=== PATIENT | female | born 1990 | race Caucasian/White ===

== ENCOUNTER 2016-10-01 21:41 | Observation (INO) | payer OTHER ==
[~2016-10-01] VITALS: Ht 180.3 cm; Wt 119.7 kg
[~2016-10-01 21:41] MED LIST: ACET325T9 PO; IBUP-1007 PO
[2016-10-01] MEDS ORDERED: IV NORMAL SALINE 1000ML BAG 1,000 ML IV ONE ×2 (22:30→23:45)
[2016-10-01 22:31] LABS: BASO # 0.1 x10^3/uL (0.0-0.2); BASO % 0 % (0-3); EOS % 1 % (0-3); HEMATOCRIT 48.4 % (36.0-47.0); HEMOGLOBIN 16.2 g/dL (12.0-15.5); LYMPH # 2.1 x10^3/uL (1.0-4.8); LYMPH % 16 % (24-48); MEAN CORPUSCULAR HEMOGLOBIN 31 pg (25-35); MEAN CORPUSCULAR HGB CONC 34 g/dL (31-37); MEAN CORPUSCULAR VOLUME 92 fL (79-100); MONO % 8 % (0-9); NEUT % 75 % (31-73); PLATELET COUNT 242 x10^3/uL (140-400); RED BLOOD COUNT 5.23 x10^6/uL (3.50-5.40); RED CELL DISTRIBUTION WIDTH 13.1 % (11.5-14.5); WHITE BLOOD COUNT 12.9 x10^3/uL (4.0-11.0)
[2016-10-01 22:33] LABS: BILIRUBIN,URINE SMALL (NEG); GLUCOSE,URINE 250 mg/dL (NEG); NITRITE,URINE NEGATIVE (NEG); PH,URINE 5.5; UROBILINOGEN,URINE 0.2 mg/dL (0.2 mg/dL)
[2016-10-01 22:39] LABS: NEG OBC UR NEG; POS OBC UR POS
[2016-10-01 22:41] LABS: CALCIUM 9.2 mg/dL (8.5-10.1); CREATININE 0.8 mg/dL (0.6-1.0); GFR 85.4; POTASSIUM 3.4 mmol/L (3.5-5.1)
[2016-10-01] MEDS: HYDROMORPHONE 2 MG/ML VIAL. IV PRN (22:44)
[2016-10-01 22:45] LABS: ALBUMIN 3.9 g/dL (3.4-5.0); ALBUMIN/GLOBULIN RATIO 0.8 (1.0-1.7); TOTAL BILIRUBIN 0.6 mg/dL (0.2-1.0); TOTAL PROTEIN 8.7 g/dL (6.4-8.2)
[2016-10-01] MEDS ORDERED: ONDANSETRON PF 4 MG/2 ML VIAL. IV ONE (22:45)
[2016-10-01 22:46] LABS: PROTEIN,URINE TRACE mg/dL (NEG-TRACE)
[2016-10-01 22:48] LABS: BACTERIA,URINE FEW /HPF (0-FEW); RBC,URINE OCC /HPF (0-2)
[2016-10-01 22:49] LABS: SQUAMOUS EPITHELIAL CELL,UR MOD /LPF; YEAST,URINE PRESENT /HPF
--- NOTE | 2016-10-01 23:05 | RAD ---
PROCEDURE Abdomen sonogram. HISTORY Right upper quadrant pain. TECHNIQUE Sonographic imaging of the abdomen was performed. COMPARISON None. FINDINGS The exam is limited due to body habitus and bowel gas. There is hepatomegaly and hepatic steatosis. No focal hepatic lesion is seen. There is a suspected gallbladder containing stones, not well seen due to aforementioned study limitations. There is suggestion of gallbladder wall thickening. The common bile duct is normal in caliber. The right kidney is unremarkable. The pancreas, aorta and inferior vena cava are partially obscured. IMPRESSION 1. Significantly limited exam due to body habitus and bowel gas. There is a suspected gallbladder containing stones with associated wall thickening. The possibility of superimposed cholecystitis is not excluded. 2. Hepatomegaly and hepatic steatosis. Electronically signed by: Yudith Connor (Oct 01, 2016 23:04:01)
[2016-10-01] MEDS ORDERED: FLUCONAZOLE 100 MG TABLET. PO ONE (23:15)
[2016-10-01] MEDS ORDERED: MORPHINE SULFATE 2 MG/ML DISP.SYRIN. IV PRN (23:45)
[2016-10-01] MEDS ORDERED: ONDANSETRON PF 4 MG/2 ML VIAL. IV PRN (23:45)
[2016-10-02] MEDS ORDERED: PIPERACILLIN/TAZOBACTAM 3.375 GM in IV NORMAL SALINE 50ML 50 ML IV ONE ×2
[2016-10-02] MEDS: HYDROMORPHONE 2 MG/ML VIAL. IV PRN (00:05)
[2016-10-02 01:20] VITALS: BP 129/83
--- NOTE | 2016-10-02 01:21 | ACF ---
Admission Forms Criteria GALLBLADDER OR BILE DUCT INFLAMMATION OR STONE Clinical Indications for Admission to Inpatient Care ( Place 'X' for any and all applicable criteria): Admission is indicated for patients with ANY ONE of the following(1)(2)(3)(4)(5) : [X]I. Acute cholecystitis as indicated by ALL of the following: [X]a) Right upper quadrant pain, mass, or tenderness [X]b) Systemic signs of inflammation indicated by ANY ONE of the following: [ ]i) Fever [ ]ii) C-reactive protein level greater than 10 mg/L (95 nmol/L) [X]iii) White blood cell count greater than 10,000/mm3 (10 x109/L) or less than 4000/mm3 (4 x109/L) [ ]II. Inpatient admission required rather than observation care (Also use Gallbladder or Bile Duct Inflammation or Stone: Observation Care as appropriate) because of ANY ONE of the following: [ ]a) Common bile duct obstruction diagnosed [ ]b) Vomiting that is severe or persistent [ ]c) Severe pain requiring acute inpatient management [ ]d) Signs of intestinal obstruction or peritonitis [A] [ ]e) Severe electrolyte abnormalities requiring inpatient care [ ]f) Absent bowel sounds with complete ileus(8) [ ]g) Hemodynamic instability [ ]h) High fever or infection requiring inpatient admission as indicated by ANY ONE of the following (9): [ ]1) Appropriate outpatient or observation care antimicrobial Treatment. unavailable, not effective, or not feasible [ ]2) Temperature greater than 104.9 degrees F (40.5 degrees C) (oral) [ ]3) Temperature greater than 103.1 degrees F (39.5 degrees C) (oral) or less than 96.8 degrees F (36 degrees C) (rectal) that does not respond to all emergency treatment measures [ ]4) Documented bacteremia [ ]i) IV fluid to replace significant ongoing losses (greater than 3 L/m2 per day) [ ]j) Percutaneous or open drainage (eg, abscess, biliary tract) procedures [ ]k) Immediate inpatient surgery [ ]l) Other condition, treatment or monitoring requiring inpatient admission [ ]III. Acute cholangitis as indicated by ALL of the following(9)(10): [ ]a) Systemic signs of inflammation indicated by ANY ONE of the following: [ ]i) Fever [ ]ii) C-reactive protein level greater than 10 mg/L (95 nmol /L) [ ]iii) White blood cell count greater than 10,000/mm3 (10 x109/L) or less than 4000/mm3 (4 x109/L) [ ]b) Evidence of common bile duct disease indicated by ANY ONE of the following: [ ]i) Total serum bilirubin level greater than or equal to 2 mg/dL (34 micromoles/L) [ ]ii) Liver function test (alkaline phosphatase (ALP), r- glutamyltransferase (GGT), aspartate aminotransferase (AST), or alanine aminotransferase (ALT)) greater than 1.5 times the upper limit of normal[B] [ ]iii) Hepatobiliary imaging showing biliary dilatation or evidence of etiology (eg, stricture, stone, previously placed stent) Extended stay beyond goal length of stay may be needed for (1)(2)): [ ]a) Bacteremia or Hemodynamic instability [ ]b) Cholecystectomy [ ]c) Other surgical procedure(24) [ ]d) Percutaneous or endoscopic ultrasound-guided cholecystostomy The original [facility] content created by [facility] has been revised. The portions of the content which have been revised are identified through the use of italic text or in bold, and [facility] has neither reviewed nor approved the modified material. All other unmodified content is copyright [facility]. Please see references footnoted in the original [facility] edition 2016 Admission Criteria Met?: Pending ASHLEY PÉREZ Oct 02, 2016 01:20
[2016-10-02] MEDS ORDERED: SITA50TA PO (01:46)
[2016-10-02] MEDS ORDERED: PNEUMOCOCCAL VAX SCREEN BY RX. MC ONE (02:00)
[2016-10-02] MEDS ORDERED: INFLUENZA VAX SCREEN BY RX. MC ONE (02:00)
--- NOTE | 2016-10-02 02:42 | PHYS DOC ---
Past Medical History Past Medical History: Depression, Diabetes-Type II, Other Additional Past Medical Histor: abscess, chronic back pain Past Surgical History: No Surgical History Alcohol Use: None Drug Use: None Adult General Chief Complaint Chief Complaint: ABDOMINAL PAIN HPI HPI 18-year-old female presenting the emergency department with nausea vomiting and epigastric abdominal pain. The pain started last night. It is a stabbing pain does not radiate. 7 out of 10. She denies fevers or chills. Review of Systems Review of Systems Negative for shortness of breath or chest pain. Negative for fevers chills or diarrhea. She denies headaches. She denies vision changes. All other review of systems is negative unless otherwise noted in history of present illness. Current Medications Current Medications Current Medications Medications (Trade) Dose Ordered Sig/Brian Start Time Stop Time Status Last Admin Dose Admin Fluconazole 150 mg 150 mg 1X ONCE 10/01/16 23:15 10/01/16 23:16 DC 10/01/16 23:14 150 MG Hydromorphone HCl (Dilaudid) 0.5 mg PRN Q1HR PRN 10/01/16 22:30 10/02/16 00:05 0.5 MG Morphine Sulfate 2 mg PRN Q2HR PRN 10/01/16 23:45 10/02/16 23:44 Ondansetron HCl (Zofran) 4 mg PRN Q8HRS PRN 10/01/16 23:45 10/02/16 23:44 Piperacillin Sod/ Tazobactam Sod 3.375 gm/Sodium Chloride 50 ml @ 100 mls/hr 1X ONCE 10/02/16 00:00 10/02/16 00:29 DC 10/02/16 00:05 100 MLS/HR Sodium Chloride (Iv Sodium Chloride 0.9% 1000ml Bag) 1,000 ml @ 125 mls/hr 1X ONCE 10/01/16 23:45 10/02/16 07:44 10/01/16 00:05 125 MLS/HR Allergies Allergies Allergies Coded Allergies Type Severity Reaction Last Updated Verified ibuprofen Allergy Intermediate 12/05/15 No naproxen Allergy Intermediate 12/05/15 No Physical Exam Physical Exam Constitutional: Well developed, well nourished, no acute distress, non-toxic appearance. HENT: Normocephalic, atraumatic, bilateral external ears normal, oropharynx moist, no oral exudates, nose normal. [] Eyes: PERRLA, EOMI, conjunctiva normal, no discharge. Neck: Normal range of motion, no tenderness, supple, no stridor. Cardiovascular:Heart rate regular rhythm, no murmur [] Lungs & Thorax: Bilateral breath sounds clear to auscultation Abdomen: Mild tenderness in the right upper quadrant. Positive Marion sign. Negative McBurney's point. No rebound tenderness or guarding present. Skin: Warm, dry, no erythema, no rash. [] Back: No tenderness, no CVA tenderness. Extremities: No tenderness, no cyanosis, no clubbing, ROM intact, no edema. [] Neurologic: Alert and oriented X 3, normal motor function, normal sensory function, no focal deficits noted. Psychologic: Affect normal, judgement normal, mood normal. Current Patient Data Vital Signs Vital Signs Date Time Temp Pulse Resp B/P Pulse Ox O2 Delivery O2 Flow Rate FiO2 10/02/16 00:20 106 147/69 95 Room Air 10/02/16 00:05 16 10/01/16 22:09 97.7 97.7 Lab Values Laboratory Tests Test 10/01/16 21:40 10/01/16 22:01 Urine Collection Type Unknown Urine Color Carine Urine Clarity Clear Urine pH 5.5 Urine Specific [place] >=1.030 Urine Protein Tracemg/dL (NEG-TRACE) Urine Glucose (UA) 250mg/dL (NEG) Urine Ketones (Stick) Negativemg/dL (NEG) Urine Blood Negative (NEG) Urine Nitrite Negative (NEG) Urine Bilirubin Small (NEG) Urine Urobilinogen Dipstick 0.2mg/dL (0.2 mg/dL) Urine Leukocyte Esterase Trace (NEG) Urine RBC Occ/HPF (0-2) Urine WBC 1-4/HPF (0-4) Urine Squamous Epithelial Cells Mod/LPF Urine Bacteria Few/HPF (0-FEW) Urine Hyaline Casts Few/HPF Urine Mucus Mod/LPF Urine Yeast Present/HPF Urine Test Negative (NEG) White Blood Count 12.9x10^3/uL (4.0-11.0) H Red Blood Count 5.23x10^6/uL (3.50-5.40) Hemoglobin 16.2g/dL (12.0-15.5) H Hematocrit 48.4% (36.0-47.0) H Mean Corpuscular Volume 92fL (79-100) Mean Corpuscular Hemoglobin 31pg (25-35) Mean Corpuscular Hemoglobin Concent 34g/dL (31-37) Red Cell Distribution Width 13.1% (11.5-14.5) Platelet Count 242x10^3/uL (140-400) Neutrophils (%) (Auto) 75% (31-73) H Lymphocytes (%) (Auto) 16% (24-48) L Monocytes (%) (Auto) 8% (0-9) Eosinophils (%) (Auto) 1% (0-3) Basophils (%) (Auto) 0% (0-3) Neutrophils # (Auto) 9.6x10^3uL (1.8-7.7) H Lymphocytes # (Auto) 2.1x10^3/uL (1.0-4.8) Monocytes # (Auto) 1.0x10^3/uL (0.0-1.1) Eosinophils # (Auto) 0.1x10^3/uL (0.0-0.7) Basophils # (Auto) 0.1x10^3/uL (0.0-0.2) Sodium Level 138mmol/L (136-145) Potassium Level 3.4mmol/L (3.5-5.1) L Chloride Level 96mmol/L (98-107) L Carbon Dioxide Level 29mmol/L (21-32) Anion Gap 13 (6-14) Blood Urea Nitrogen 11mg/dL (7-20) Creatinine 0.8mg/dL (0.6-1.0) Estimated GFR (Cockcroft-Gault) 85.4 BUN/Creatinine Ratio 14 (6-20) Glucose Level 226mg/dL (70-99) H Calcium Level 9.2mg/dL (8.5-10.1) Total Bilirubin 0.6mg/dL (0.2-1.0) Aspartate Amino Transferase (AST) 13U/L (15-37) L Alanine Aminotransferase (ALT) 42U/L (14-59) Alkaline Phosphatase 113U/L (46-116) Total Protein 8.7g/dL (6.4-8.2) H Albumin 3.9g/dL (3.4-5.0) Albumin/Globulin Ratio 0.8 (1.0-1.7) L Lipase 114U/L (73-393) Laboratory Tests 10/01/16 22:01 Laboratory Tests 10/01/16 22:01 EKG EKG [] Radiology/Procedures Radiology/Procedures [facility] [address] [place] [address] IMAGING REPORT Signed PATIENT: RED GÓMEZ ACCOUNT: [id number] : 1990 LOCATION: ER AGE: 26 SEX: F EXAM STATUS: REG ER ORD. PHYSICIAN: DOM MARTÍNEZ MD REASON: RUQ ABD PAIN EVAL GB PROCEDURE: ABDOMEN LTD PROCEDURE Abdomen sonogram. HISTORY Right upper quadrant pain. TECHNIQUE Sonographic imaging of the abdomen was performed. COMPARISON None. FINDINGS The exam is limited due to body habitus and bowel gas. There is hepatomegaly and hepatic steatosis. No focal hepatic lesion is seen. There is a suspected gallbladder containing stones, not well seen due to aforementioned study limitations. There is suggestion of gallbladder wall thickening. The common bile duct is normal in caliber. The right kidney is unremarkable. The pancreas, aorta and inferior vena cava are partially obscured. IMPRESSION 1. Significantly limited exam due to body habitus and bowel gas. There is a suspected gallbladder containing stones with associated wall thickening. The possibility of superimposed cholecystitis is not excluded. 2. Hepatomegaly and hepatic steatosis. Electronically signed by: Yudith Coughlin (Oct 01, 2016 23:04:01) DICTATED and SIGNED BY: YUDITH COUGHLIN MD DATE: 10/01/16 7972 CC: DOM MARTÍNEZ MD; NO PCP ~ [] Course & Med Decision Making Course & Med Decision Making Pertinent Labs and Imaging studies reviewed. (See chart for details) [18-year-old female presenting to the emergency department today with nausea vomiting and epigastric abdominal pain. Vital signs afebrile with tachycardia. Physical exam showed tenderness in the right upper quadrant. Otherwise the patient's blood work showed a leukocytosis. Urinalysis not suggestive of infection. Urine yeast noted. Diflucan given. Chemistry panel shows hyperglycemia otherwise unremarkable. Ultrasound suggestive of possible cholecystitis. Patient was given IV antibiotics along with fluids nausea and pain medication. She was then admitted to our hospital for surgical consultation.] Dragon Disclaimer Dragon Disclaimer This electronic medical record was generated, in whole or in part, using a voice recognition dictation system. Departure Departure Impression: Primary Impression: Right upper quadrant abdominal pain Additional Impression: Nausea and vomiting Disposition: ADMITTED INPATIENT Admitting Physician: Roberta Santos Condition: IMPROVED Referrals: NO PCP (PCP) Problem Qualifiers DOM MARTÍNEZ MD Oct 02, 2016 02:42
[2016-10-02 03:00] VITALS: BP 137/78
[2016-10-02 05:42] LABS: BASO % 0 % (0-3); EOS % 2 % (0-3); HEMATOCRIT 41.2 % (36.0-47.0); HEMOGLOBIN 13.9 g/dL (12.0-15.5); LYMPH # 2.1 x10^3/uL (1.0-4.8); LYMPH % 20 % (24-48); MEAN CORPUSCULAR HEMOGLOBIN 31 pg (25-35); MEAN CORPUSCULAR HGB CONC 34 g/dL (31-37); MEAN CORPUSCULAR VOLUME 90 fL (79-100); MONO % 10 % (0-9); NEUT % 68 % (31-73); PLATELET COUNT 229 x10^3/uL (140-400); RED BLOOD COUNT 4.55 x10^6/uL (3.50-5.40); RED CELL DISTRIBUTION WIDTH 13.1 % (11.5-14.5); WHITE BLOOD COUNT 10.4 x10^3/uL (4.0-11.0)
[2016-10-02 05:51] LABS: CALCIUM 8.3 mg/dL (8.5-10.1); CREATININE 0.7 mg/dL (0.6-1.0); GFR 99.6; POTASSIUM 3.4 mmol/L (3.5-5.1)
[2016-10-02 07:14] VITALS: BP 118/71
[2016-10-02] MEDS ORDERED: ACETAMINOPHEN 325 MG TABLET. PO PRN (08:45)
[2016-10-02] MEDS ORDERED: MORPHINE SULFATE 2 MG/ML DISP.SYRIN. IV PRN (08:45)
[2016-10-02] MEDS ORDERED: ONDANSETRON PF 4 MG/2 ML VIAL. IV PRN (08:45)
[2016-10-02] MEDS ORDERED: MORPHINE SULFATE 4 MG/ML DISP.SYRIN. IV PRN (08:45)
[2016-10-02] MEDS ORDERED: DEXTROSE 50% 25 GM / 50ML DISP.SYRIN. IV PRN (08:45)
[2016-10-02] MEDS ORDERED: FLU VACC QUAD 2016-17 (36MOS+)/PF 0.5 ML SYRINGE. VAX IM ONE (09:00)
[2016-10-02] MEDS ORDERED: PNEUMOC CONJ VACC 23-VALENT 0.5 ML VIAL. VAX IM ONE (09:00)
[2016-10-02] MEDS: POTASSIUM CHLORIDE 10MEQ 100 ML IV SCH ×2 (09:40→10:00)
[2016-10-02] MEDS ORDERED: IOHEXOL 300 MG/ML 100ML VIAL. IV ONE (10:30)
[2016-10-02 10:45] VITALS: BP 128/73
--- NOTE | 2016-10-02 10:52 | PDOC1 ---
History and Physical Date of Admission Date of Admission 10/02/16 Identification/Chief Complaint Chief Complaint N/V abd pain Problems: Source Source: Chart review, Patient History of Present Illness History of Present Illness HPI HPI 18-year-old female presenting the emergency department with nausea vomiting and epigastric abdominal pain for 2 days. Pt said she has similar pain before, intermittent, did EGD which was neg. She avoids NSAIDS which cause abd pain. no fever, + chills, had diarrhea. today no N/V, still abd pain, better with meds, cental abd, radiates to bl flank. cough since ER. smoker US showed possible devora. Past Medical History Endocrine: Diabetes Past Surgical History Past Surgical History: No pertinent history Family History Family History: No Significant Social History Smoke: <1 pack per day ALCOHOL: none Drugs: None Current Problem List Problem List Problems Medical Problems: (1) Cholecystitis Status: Acute (2) Nausea and vomiting Status: Acute (3) Right upper quadrant abdominal pain Status: Acute Current Medications Current Medications Current Medications Medications (Trade) Dose Ordered Sig/Brian Start Time Stop Time Status Last Admin Dose Admin Acetaminophen (Tylenol) 650 mg PRN Q6HRS PRN 10/02/16 08:45 Dextrose 12.5 gm PRN Q15MIN PRN 10/02/16 08:45 Fluconazole 150 mg 150 mg 1X ONCE 10/01/16 23:15 10/01/16 23:16 DC 10/01/16 23:14 150 MG Hydromorphone HCl (Dilaudid) 0.5 mg PRN Q1HR PRN 10/01/16 22:30 10/02/16 00:05 0.5 MG Influenza Virus Vaccine Quadrival (Fluarix Quad [id number] Syringe) 0.5 ml ONCE ONCE 10/02/16 09:00 10/02/16 09:01 DC Info (Do NOT chart on this placeholder) 1 each 1X ONCE 10/02/16 02:00 10/02/16 02:01 UNV Insulin Aspart (Novolog) 0-9 UNITS QIDACHS 10/02/16 11:30 Iohexol (Omnipaque 300 Mg/ml) 75 ml 1X ONCE 10/02/16 10:30 10/02/16 10:31 DC Morphine Sulfate 4 mg PRN Q2HR PRN 10/02/16 08:45 Ondansetron HCl (Zofran) 4 mg PRN Q6HRS PRN 10/02/16 08:45 Piperacillin Sod/ Tazobactam Sod 3.375 gm/Sodium Chloride 50 ml @ 100 mls/hr 1X ONCE 10/02/16 00:00 10/02/16 00:29 DC 10/02/16 00:05 100 MLS/HR Pneumococcal Polyvalent Vaccine 0.5 ml 0.5 ml ONCE ONCE 10/02/16 09:00 10/02/16 09:01 DC Pneumococcal Polyvalent Vaccine (Do NOT chart on this placeholder) 1 each 1X ONCE 10/02/16 02:00 10/02/16 02:01 UNV Potassium Chloride (KCl Premix 10meq) 100 ml @ 100 mls/hr Q1H 10/02/16 09:00 10/02/16 10:59 10/02/16 09:40 100 MLS/HR Sodium Chloride (Iv Sodium Chloride 0.9% 1000ml Bag) 1,000 ml @ 125 mls/hr 1X ONCE 10/01/16 23:45 10/02/16 07:44 DC 10/01/16 00:05 125 MLS/HR Allergies Allergies Allergies Coded Allergies Type Severity Reaction Last Updated Verified ibuprofen Allergy Intermediate 12/05/15 No naproxen Allergy Intermediate 12/05/15 No ROS Review of System CONSTITUTIONAL: No fever or chills EYES: No recent changes SKIN: No rash or itching CARDIOVASCULAR: No chest pain, syncope, palpitations, or edema RESPIRATORY: No SOB or cough GASTROINTESTINAL: No nausea, vomiting or abdominal pain NEUROLOGICAL: No headaches or weakness ENDOCRINE: No cold or heat intolerance GENITOURINARY: No urgency or frequency of urination MUSCULOSKELETAL: No back pain or joint pain LYMPHATICS: No enlarged lymph nodes PSYCHIATRIC: No anxiety or depression Physical Exam Physical Exam GEN.: No apparent distress. Alert and oriented. HEENT: Head is normocephalic, atraumatic NECK: Supple. LUNGS: Clear to auscultation. HEART: RRR, S1, S2 present. Peripheral pulses intact ABDOMEN: Soft, Positive bowel sounds. diffuse mild abd tenderness. EXTREMITIES: Without any cyanosis. NEUROLOGIC: Normal speech, normal tone PSYCHIATRIC: Normal affect, normal mood. SKIN: No ulcerations Vitals Vitals Vital Signs Date Time Temp Pulse Resp B/P Pulse Ox O2 Delivery O2 Flow Rate FiO2 10/02/16 07:14 98.3 92 18 118/71 92 Room Air 98.3 Labs Labs Laboratory Tests Test 10/01/16 21:40 10/01/16 22:01 10/02/16 04:55 10/02/16 07:09 Urine Collection Type Unknown Urine Color Carine Urine Clarity Clear Urine pH 5.5 Urine Specific [place] >=1.030 Urine Protein Tracemg/dL (NEG-TRACE) Urine Glucose (UA) 250mg/dL (NEG) Urine Ketones (Stick) Negativemg/dL (NEG) Urine Blood Negative (NEG) Urine Nitrite Negative (NEG) Urine Bilirubin Small (NEG) Urine Urobilinogen Dipstick 0.2mg/dL (0.2 mg/dL) Urine Leukocyte Esterase Trace (NEG) Urine RBC Occ/HPF (0-2) Urine WBC 1-4/HPF (0-4) Urine Squamous Epithelial Cells Mod/LPF Urine Bacteria Few/HPF (0-FEW) Urine Hyaline Casts Few/HPF Urine Mucus Mod/LPF Urine Yeast Present/HPF Urine Test Negative (NEG) White Blood Count 12.9x10^3/uL (4.0-11.0) 10.4x10^3/uL (4.0-11.0) Red Blood Count 5.23x10^6/uL (3.50-5.40) 4.55x10^6/uL (3.50-5.40) Hemoglobin 16.2g/dL (12.0-15.5) 13.9g/dL (12.0-15.5) Hematocrit 48.4% (36.0-47.0) 41.2% (36.0-47.0) Mean Corpuscular Volume 92fL (79-100) 90fL (79-100) Mean Corpuscular Hemoglobin 31pg (25-35) 31pg (25-35) Mean Corpuscular Hemoglobin Concent 34g/dL (31-37) 34g/dL (31-37) Red Cell Distribution Width 13.1% (11.5-14.5) 13.1% (11.5-14.5) Platelet Count 242x10^3/uL (140-400) 229x10^3/uL (140-400) Neutrophils (%) (Auto) 75% (31-73) 68% (31-73) Lymphocytes (%) (Auto) 16% (24-48) 20% (24-48) Monocytes (%) (Auto) 8% (0-9) 10% (0-9) Eosinophils (%) (Auto) 1% (0-3) 2% (0-3) Basophils (%) (Auto) 0% (0-3) 0% (0-3) Neutrophils # (Auto) 9.6x10^3uL (1.8-7.7) 7.1x10^3uL (1.8-7.7) Lymphocytes # (Auto) 2.1x10^3/uL (1.0-4.8) 2.1x10^3/uL (1.0-4.8) Monocytes # (Auto) 1.0x10^3/uL (0.0-1.1) 1.0x10^3/uL (0.0-1.1) Eosinophils # (Auto) 0.1x10^3/uL (0.0-0.7) 0.2x10^3/uL (0.0-0.7) Basophils # (Auto) 0.1x10^3/uL (0.0-0.2) 0.0x10^3/uL (0.0-0.2) Sodium Level 138mmol/L (136-145) 137mmol/L (136-145) Potassium Level 3.4mmol/L (3.5-5.1) 3.4mmol/L (3.5-5.1) Chloride Level 96mmol/L (98-107) 101mmol/L (98-107) Carbon Dioxide Level 29mmol/L (21-32) 27mmol/L (21-32) Anion Gap 13 (6-14) 9 (6-14) Blood Urea Nitrogen 11mg/dL (7-20) 8mg/dL (7-20) Creatinine 0.8mg/dL (0.6-1.0) 0.7mg/dL (0.6-1.0) Estimated GFR (Cockcroft-Gault) 85.4 99.6 BUN/Creatinine Ratio 14 (6-20) Glucose Level 226mg/dL (70-99) 247mg/dL (70-99) Calcium Level 9.2mg/dL (8.5-10.1) 8.3mg/dL (8.5-10.1) Total Bilirubin 0.6mg/dL (0.2-1.0) Aspartate Amino Transf (AST/SGOT) 13U/L (15-37) Alanine Aminotransferase (ALT/SGPT) 42U/L (14-59) Alkaline Phosphatase 113U/L (46-116) Total Protein 8.7g/dL (6.4-8.2) Albumin 3.9g/dL (3.4-5.0) Albumin/Globulin Ratio 0.8 (1.0-1.7) Lipase 114U/L (73-393) Glucose (Fingerstick) 238mg/dL (70-99) Laboratory Tests Test 10/01/16 21:40 10/01/16 22:01 10/02/16 04:55 10/02/16 07:09 Urine Collection Type Unknown Urine Color Carine Urine Clarity Clear Urine pH 5.5 Urine Specific [place] >=1.030 Urine Protein Tracemg/dL (NEG-TRACE) Urine Glucose (UA) 250mg/dL (NEG) Urine Ketones (Stick) Negativemg/dL (NEG) Urine Blood Negative (NEG) Urine Nitrite Negative (NEG) Urine Bilirubin Small (NEG) Urine Urobilinogen Dipstick 0.2mg/dL (0.2 mg/dL) Urine Leukocyte Esterase Trace (NEG) Urine RBC Occ/HPF (0-2) Urine WBC 1-4/HPF (0-4) Urine Squamous Epithelial Cells Mod/LPF Urine Bacteria Few/HPF (0-FEW) Urine Hyaline Casts Few/HPF Urine Mucus Mod/LPF Urine Yeast Present/HPF Urine Test Negative (NEG) White Blood Count 12.9x10^3/uL (4.0-11.0) 10.4x10^3/uL (4.0-11.0) Red Blood Count 5.23x10^6/uL (3.50-5.40) 4.55x10^6/uL (3.50-5.40) Hemoglobin 16.2g/dL (12.0-15.5) 13.9g/dL (12.0-15.5) Hematocrit 48.4% (36.0-47.0) 41.2% (36.0-47.0) Mean Corpuscular Volume 92fL (79-100) 90fL (79-100) Mean Corpuscular Hemoglobin 31pg (25-35) 31pg (25-35) Mean Corpuscular Hemoglobin Concent 34g/dL (31-37) 34g/dL (31-37) Red Cell Distribution Width 13.1% (11.5-14.5) 13.1% (11.5-14.5) Platelet Count 242x10^3/uL (140-400) 229x10^3/uL (140-400) Neutrophils (%) (Auto) 75% (31-73) 68% (31-73) Lymphocytes (%) (Auto) 16% (24-48) 20% (24-48) Monocytes (%) (Auto) 8% (0-9) 10% (0-9) Eosinophils (%) (Auto) 1% (0-3) 2% (0-3) Basophils (%) (Auto) 0% (0-3) 0% (0-3) Neutrophils # (Auto) 9.6x10^3uL (1.8-7.7) 7.1x10^3uL (1.8-7.7) Lymphocytes # (Auto) 2.1x10^3/uL (1.0-4.8) 2.1x10^3/uL (1.0-4.8) Monocytes # (Auto) 1.0x10^3/uL (0.0-1.1) 1.0x10^3/uL (0.0-1.1) Eosinophils # (Auto) 0.1x10^3/uL (0.0-0.7) 0.2x10^3/uL (0.0-0.7) Basophils # (Auto) 0.1x10^3/uL (0.0-0.2) 0.0x10^3/uL (0.0-0.2) Sodium Level 138mmol/L (136-145) 137mmol/L (136-145) Potassium Level 3.4mmol/L (3.5-5.1) 3.4mmol/L (3.5-5.1) Chloride Level 96mmol/L (98-107) 101mmol/L (98-107) Carbon Dioxide Level 29mmol/L (21-32) 27mmol/L (21-32) Anion Gap 13 (6-14) 9 (6-14) Blood Urea Nitrogen 11mg/dL (7-20) 8mg/dL (7-20) Creatinine 0.8mg/dL (0.6-1.0) 0.7mg/dL (0.6-1.0) Estimated GFR (Cockcroft-Gault) 85.4 99.6 BUN/Creatinine Ratio 14 (6-20) Glucose Level 226mg/dL (70-99) 247mg/dL (70-99) Calcium Level 9.2mg/dL (8.5-10.1) 8.3mg/dL (8.5-10.1) Total Bilirubin 0.6mg/dL (0.2-1.0) Aspartate Amino Transf (AST/SGOT) 13U/L (15-37) Alanine Aminotransferase (ALT/SGPT) 42U/L (14-59) Alkaline Phosphatase 113U/L (46-116) Total Protein 8.7g/dL (6.4-8.2) Albumin 3.9g/dL (3.4-5.0) Albumin/Globulin Ratio 0.8 (1.0-1.7) Lipase 114U/L (73-393) Glucose (Fingerstick) 238mg/dL (70-99) VTE Prophylaxis Ordered VTE Prophylaxis Devices: Yes VTE Pharmacological Prophylaxi: No Assessment/Plan Assessment/Plan 1. N/V , abd pain, 2/2 possible acute cholecystitis 2. morbid obesity 3. dm2 4. depression 5. hypokalemia 6. chronic tooth pain , fu with dentist plan: 1. sx consult 2. abd ct pending as per sx 3. add HIDA 4. cont iv abx flagyl and levaquin, ivf pain control NPO for now labs tmr replete K 20meq ivx1 Pt may need sx. KERVIN GARCIA MD Oct 02, 2016 10:52
[2016-10-02] MEDS ORDERED: METRONIDAZOLE 500mg PREMIX 100 ML IV SCH (11:00)
[2016-10-02] MEDS ORDERED: INSULIN ASPART 300 UNITS/3 ML INSULN.PEN SQ SCH (11:30)
--- NOTE | 2016-10-02 12:24 | PDOC ---
PROGRESS NOTES Chief Complaint Chief Complaint pt wants to eat and smoke, refuses all treatment. she wants to sign AMA. Vitals Vitals Vital Signs Date Time Temp Pulse Resp B/P Pulse Ox O2 Delivery O2 Flow Rate FiO2 10/02/16 10:45 98.1 84 17 128/73 94 Room Air 98.1 Labs LABS Laboratory Tests Test 10/01/16 21:40 10/01/16 22:01 10/02/16 04:55 10/02/16 07:09 Urine Collection Type Unknown Urine Color Carine Urine Clarity Clear Urine pH 5.5 Urine Specific [place] >=1.030 Urine Protein Tracemg/dL (NEG-TRACE) Urine Glucose (UA) 250mg/dL (NEG) Urine Ketones (Stick) Negativemg/dL (NEG) Urine Blood Negative (NEG) Urine Nitrite Negative (NEG) Urine Bilirubin Small (NEG) Urine Urobilinogen Dipstick 0.2mg/dL (0.2 mg/dL) Urine Leukocyte Esterase Trace (NEG) Urine RBC Occ/HPF (0-2) Urine WBC 1-4/HPF (0-4) Urine Squamous Epithelial Cells Mod/LPF Urine Bacteria Few/HPF (0-FEW) Urine Hyaline Casts Few/HPF Urine Mucus Mod/LPF Urine Yeast Present/HPF Urine Test Negative (NEG) White Blood Count 12.9x10^3/uL (4.0-11.0) 10.4x10^3/uL (4.0-11.0) Red Blood Count 5.23x10^6/uL (3.50-5.40) 4.55x10^6/uL (3.50-5.40) Hemoglobin 16.2g/dL (12.0-15.5) 13.9g/dL (12.0-15.5) Hematocrit 48.4% (36.0-47.0) 41.2% (36.0-47.0) Mean Corpuscular Volume 92fL (79-100) 90fL (79-100) Mean Corpuscular Hemoglobin 31pg (25-35) 31pg (25-35) Mean Corpuscular Hemoglobin Concent 34g/dL (31-37) 34g/dL (31-37) Red Cell Distribution Width 13.1% (11.5-14.5) 13.1% (11.5-14.5) Platelet Count 242x10^3/uL (140-400) 229x10^3/uL (140-400) Neutrophils (%) (Auto) 75% (31-73) 68% (31-73) Lymphocytes (%) (Auto) 16% (24-48) 20% (24-48) Monocytes (%) (Auto) 8% (0-9) 10% (0-9) Eosinophils (%) (Auto) 1% (0-3) 2% (0-3) Basophils (%) (Auto) 0% (0-3) 0% (0-3) Neutrophils # (Auto) 9.6x10^3uL (1.8-7.7) 7.1x10^3uL (1.8-7.7) Lymphocytes # (Auto) 2.1x10^3/uL (1.0-4.8) 2.1x10^3/uL (1.0-4.8) Monocytes # (Auto) 1.0x10^3/uL (0.0-1.1) 1.0x10^3/uL (0.0-1.1) Eosinophils # (Auto) 0.1x10^3/uL (0.0-0.7) 0.2x10^3/uL (0.0-0.7) Basophils # (Auto) 0.1x10^3/uL (0.0-0.2) 0.0x10^3/uL (0.0-0.2) Sodium Level 138mmol/L (136-145) 137mmol/L (136-145) Potassium Level 3.4mmol/L (3.5-5.1) 3.4mmol/L (3.5-5.1) Chloride Level 96mmol/L (98-107) 101mmol/L (98-107) Carbon Dioxide Level 29mmol/L (21-32) 27mmol/L (21-32) Anion Gap 13 (6-14) 9 (6-14) Blood Urea Nitrogen 11mg/dL (7-20) 8mg/dL (7-20) Creatinine 0.8mg/dL (0.6-1.0) 0.7mg/dL (0.6-1.0) Estimated GFR (Cockcroft-Gault) 85.4 99.6 BUN/Creatinine Ratio 14 (6-20) Glucose Level 226mg/dL (70-99) 247mg/dL (70-99) Calcium Level 9.2mg/dL (8.5-10.1) 8.3mg/dL (8.5-10.1) Total Bilirubin 0.6mg/dL (0.2-1.0) Aspartate Amino Transf (AST/SGOT) 13U/L (15-37) Alanine Aminotransferase (ALT/SGPT) 42U/L (14-59) Alkaline Phosphatase 113U/L (46-116) Total Protein 8.7g/dL (6.4-8.2) Albumin 3.9g/dL (3.4-5.0) Albumin/Globulin Ratio 0.8 (1.0-1.7) Lipase 114U/L (73-393) Glucose (Fingerstick) 238mg/dL (70-99) Test 10/02/16 11:14 Glucose (Fingerstick) 233mg/dL (70-99) Assessment and Plan Assessmemt and Plan Problems Medical Problems: (1) Cholecystitis Status: Acute (2) Nausea and vomiting Status: Acute (3) Right upper quadrant abdominal pain Status: Acute Problems: Comment Review of Relevant I have reviewed the following items yas (where applicable) has been applied. Labs Laboratory Tests Test 10/01/16 21:40 10/01/16 22:01 10/02/16 04:55 10/02/16 07:09 Urine Collection Type Unknown Urine Color Carine Urine Clarity Clear Urine pH 5.5 Urine Specific [place] >=1.030 Urine Protein Tracemg/dL (NEG-TRACE) Urine Glucose (UA) 250mg/dL (NEG) Urine Ketones (Stick) Negativemg/dL (NEG) Urine Blood Negative (NEG) Urine Nitrite Negative (NEG) Urine Bilirubin Small (NEG) Urine Urobilinogen Dipstick 0.2mg/dL (0.2 mg/dL) Urine Leukocyte Esterase Trace (NEG) Urine RBC Occ/HPF (0-2) Urine WBC 1-4/HPF (0-4) Urine Squamous Epithelial Cells Mod/LPF Urine Bacteria Few/HPF (0-FEW) Urine Hyaline Casts Few/HPF Urine Mucus Mod/LPF Urine Yeast Present/HPF Urine Test Negative (NEG) White Blood Count 12.9x10^3/uL (4.0-11.0) 10.4x10^3/uL (4.0-11.0) Red Blood Count 5.23x10^6/uL (3.50-5.40) 4.55x10^6/uL (3.50-5.40) Hemoglobin 16.2g/dL (12.0-15.5) 13.9g/dL (12.0-15.5) Hematocrit 48.4% (36.0-47.0) 41.2% (36.0-47.0) Mean Corpuscular Volume 92fL (79-100) 90fL (79-100) Mean Corpuscular Hemoglobin 31pg (25-35) 31pg (25-35) Mean Corpuscular Hemoglobin Concent 34g/dL (31-37) 34g/dL (31-37) Red Cell Distribution Width 13.1% (11.5-14.5) 13.1% (11.5-14.5) Platelet Count 242x10^3/uL (140-400) 229x10^3/uL (140-400) Neutrophils (%) (Auto) 75% (31-73) 68% (31-73) Lymphocytes (%) (Auto) 16% (24-48) 20% (24-48) Monocytes (%) (Auto) 8% (0-9) 10% (0-9) Eosinophils (%) (Auto) 1% (0-3) 2% (0-3) Basophils (%) (Auto) 0% (0-3) 0% (0-3) Neutrophils # (Auto) 9.6x10^3uL (1.8-7.7) 7.1x10^3uL (1.8-7.7) Lymphocytes # (Auto) 2.1x10^3/uL (1.0-4.8) 2.1x10^3/uL (1.0-4.8) Monocytes # (Auto) 1.0x10^3/uL (0.0-1.1) 1.0x10^3/uL (0.0-1.1) Eosinophils # (Auto) 0.1x10^3/uL (0.0-0.7) 0.2x10^3/uL (0.0-0.7) Basophils # (Auto) 0.1x10^3/uL (0.0-0.2) 0.0x10^3/uL (0.0-0.2) Sodium Level 138mmol/L (136-145) 137mmol/L (136-145) Potassium Level 3.4mmol/L (3.5-5.1) 3.4mmol/L (3.5-5.1) Chloride Level 96mmol/L (98-107) 101mmol/L (98-107) Carbon Dioxide Level 29mmol/L (21-32) 27mmol/L (21-32) Anion Gap 13 (6-14) 9 (6-14) Blood Urea Nitrogen 11mg/dL (7-20) 8mg/dL (7-20) Creatinine 0.8mg/dL (0.6-1.0) 0.7mg/dL (0.6-1.0) Estimated GFR (Cockcroft-Gault) 85.4 99.6 BUN/Creatinine Ratio 14 (6-20) Glucose Level 226mg/dL (70-99) 247mg/dL (70-99) Calcium Level 9.2mg/dL (8.5-10.1) 8.3mg/dL (8.5-10.1) Total Bilirubin 0.6mg/dL (0.2-1.0) Aspartate Amino Transf (AST/SGOT) 13U/L (15-37) Alanine Aminotransferase (ALT/SGPT) 42U/L (14-59) Alkaline Phosphatase 113U/L (46-116) Total Protein 8.7g/dL (6.4-8.2) Albumin 3.9g/dL (3.4-5.0) Albumin/Globulin Ratio 0.8 (1.0-1.7) Lipase 114U/L (73-393) Glucose (Fingerstick) 238mg/dL (70-99) Test 10/02/16 11:14 Glucose (Fingerstick) 233mg/dL (70-99) Laboratory Tests Test 10/01/16 21:40 10/01/16 22:01 10/02/16 04:55 10/02/16 07:09 Urine Collection Type Unknown Urine Color Carine Urine Clarity Clear Urine pH 5.5 Urine Specific [place] >=1.030 Urine Protein Tracemg/dL (NEG-TRACE) Urine Glucose (UA) 250mg/dL (NEG) Urine Ketones (Stick) Negativemg/dL (NEG) Urine Blood Negative (NEG) Urine Nitrite Negative (NEG) Urine Bilirubin Small (NEG) Urine Urobilinogen Dipstick 0.2mg/dL (0.2 mg/dL) Urine Leukocyte Esterase Trace (NEG) Urine RBC Occ/HPF (0-2) Urine WBC 1-4/HPF (0-4) Urine Squamous Epithelial Cells Mod/LPF Urine Bacteria Few/HPF (0-FEW) Urine Hyaline Casts Few/HPF Urine Mucus Mod/LPF Urine Yeast Present/HPF Urine Test Negative (NEG) White Blood Count 12.9x10^3/uL (4.0-11.0) 10.4x10^3/uL (4.0-11.0) Red Blood Count 5.23x10^6/uL (3.50-5.40) 4.55x10^6/uL (3.50-5.40) Hemoglobin 16.2g/dL (12.0-15.5) 13.9g/dL (12.0-15.5) Hematocrit 48.4% (36.0-47.0) 41.2% (36.0-47.0) Mean Corpuscular Volume 92fL (79-100) 90fL (79-100) Mean Corpuscular Hemoglobin 31pg (25-35) 31pg (25-35) Mean Corpuscular Hemoglobin Concent 34g/dL (31-37) 34g/dL (31-37) Red Cell Distribution Width 13.1% (11.5-14.5) 13.1% (11.5-14.5) Platelet Count 242x10^3/uL (140-400) 229x10^3/uL (140-400) Neutrophils (%) (Auto) 75% (31-73) 68% (31-73) Lymphocytes (%) (Auto) 16% (24-48) 20% (24-48) Monocytes (%) (Auto) 8% (0-9) 10% (0-9) Eosinophils (%) (Auto) 1% (0-3) 2% (0-3) Basophils (%) (Auto) 0% (0-3) 0% (0-3) Neutrophils # (Auto) 9.6x10^3uL (1.8-7.7) 7.1x10^3uL (1.8-7.7) Lymphocytes # (Auto) 2.1x10^3/uL (1.0-4.8) 2.1x10^3/uL (1.0-4.8) Monocytes # (Auto) 1.0x10^3/uL (0.0-1.1) 1.0x10^3/uL (0.0-1.1) Eosinophils # (Auto) 0.1x10^3/uL (0.0-0.7) 0.2x10^3/uL (0.0-0.7) Basophils # (Auto) 0.1x10^3/uL (0.0-0.2) 0.0x10^3/uL (0.0-0.2) Sodium Level 138mmol/L (136-145) 137mmol/L (136-145) Potassium Level 3.4mmol/L (3.5-5.1) 3.4mmol/L (3.5-5.1) Chloride Level 96mmol/L (98-107) 101mmol/L (98-107) Carbon Dioxide Level 29mmol/L (21-32) 27mmol/L (21-32) Anion Gap 13 (6-14) 9 (6-14) Blood Urea Nitrogen 11mg/dL (7-20) 8mg/dL (7-20) Creatinine 0.8mg/dL (0.6-1.0) 0.7mg/dL (0.6-1.0) Estimated GFR (Cockcroft-Gault) 85.4 99.6 BUN/Creatinine Ratio 14 (6-20) Glucose Level 226mg/dL (70-99) 247mg/dL (70-99) Calcium Level 9.2mg/dL (8.5-10.1) 8.3mg/dL (8.5-10.1) Total Bilirubin 0.6mg/dL (0.2-1.0) Aspartate Amino Transf (AST/SGOT) 13U/L (15-37) Alanine Aminotransferase (ALT/SGPT) 42U/L (14-59) Alkaline Phosphatase 113U/L (46-116) Total Protein 8.7g/dL (6.4-8.2) Albumin 3.9g/dL (3.4-5.0) Albumin/Globulin Ratio 0.8 (1.0-1.7) Lipase 114U/L (73-393) Glucose (Fingerstick) 238mg/dL (70-99) Test 10/02/16 11:14 Glucose (Fingerstick) 233mg/dL (70-99) Medications Current Medications Hydromorphone HCl (Dilaudid) 0.5 mg PRN Q1HR PRN IV SEVERE PAIN Last administered on 10/02/16 00:05; Start 10/01/16 at 22:30 Ondansetron HCl 4 mg 4 mg 1X ONCE IV Last administered on 10/01/16 22:44; Start 10/01/16 at 22:45; Stop 10/01/16 at 22:46; Status DC Sodium Chloride (Iv Sodium Chloride 0.9% 1000ml Bag) 1,000 ml @ 1,000 mls/hr 1X ONCE IV Last administered on 10/01/16 22:45; Start 10/01/16 at 22:30; Stop 10/01/16 at 23:29; Status DC Fluconazole 150 mg 150 mg 1X ONCE PO Last administered on 10/01/16 23:14; Start 10/01/16 at 23:15; Stop 10/01/16 at 23:16; Status DC Piperacillin Sod/ Tazobactam Sod 3.375 gm/Sodium Chloride 50 ml @ 100 mls/hr 1X ONCE IV Last administered on 10/02/16 00:05; Start 10/02/16 at 00:00; Stop 10/02/16 at 00:29; Status DC Sodium Chloride (Iv Sodium Chloride 0.9% 1000ml Bag) 1,000 ml @ 125 mls/hr 1X ONCE IV Last administered on 10/01/16 00:05; Start 10/01/16 at 23:45; Stop at 07:44; Status DC Ondansetron HCl (Zofran) 4 mg PRN Q8HRS PRN IV NAUSEA/VOMITING; Start 10/01/16 at 23:45; Stop 10/02/16 at 23:44 Morphine Sulfate 2 mg PRN Q2HR PRN IV PAIN Last administered on 10/02/16 03:50 ; Start 10/01/16 at 23:45; Stop 10/02/16 at 23:44 Info (Do NOT chart on this placeholder) 1 each 1X ONCE MC ; Start 10/02/16 at 02 :00; Stop 10/02/16 at 02:01; Status UNV Pneumococcal Polyvalent Vaccine (Do NOT chart on this placeholder) 1 each 1X ONCE MC ; Start 10/02/16 at 02:00; Stop 10/02/16 at 02:01; Status UNV Influenza Virus Vaccine Quadrival (Fluarix Quad [id number] Syringe) 0.5 ml ONCE ONCE VAX IM ; Start 10/02/16 at 09:00; Stop 10/02/16 at 09:01; Status DC Pneumococcal Polyvalent Vaccine 0.5 ml 0.5 ml ONCE ONCE VAX IM ; Start 10/02/16 at 09:00; Stop 10/02/16 at 09:01; Status DC Potassium Chloride (KCl Premix 10meq) 100 ml @ 100 mls/hr Q1H IV Last administered on 10/02/16 09:40; Start 10/02/16 at 09:00; Stop 10/02/16 at 10:59; Status DC Acetaminophen (Tylenol) 650 mg PRN Q6HRS PRN PO MILD PAIN / TEMP; Start at 08:45 Ondansetron HCl (Zofran) 4 mg PRN Q6HRS PRN IV NAUSEA/VOMITING; Start 10/02/16 at 08:45 Morphine Sulfate 2 mg PRN Q2HR PRN IV PAIN; Start 10/02/16 at 08:45 Morphine Sulfate 4 mg PRN Q2HR PRN IV PAIN; Start 10/02/16 at 08:45 Insulin Aspart (Novolog) 0-9 UNITS QIDACHS SQ ; Start 10/02/16 at 11:30 Dextrose 12.5 gm PRN Q15MIN PRN IV SEE COMMENTS; Start 10/02/16 at 08:45 Iohexol 75 ml 75 ml 1X ONCE IV Last administered on 10/02/16 10:46; Start 10/02 at 10:30; Stop 10/02/16 at 10:31; Status DC Levofloxacin/ Dextrose 100 ml @ 100 mls/hr Q24H IV ; Start 10/02/16 at 11:00 Metronidazole (FLAGYL 500Mmg PREMIX) 100 ml @ 100 mls/hr Q12HR IV ; Start at 11:00 Active Scripts Active Reported Januvia (Sitagliptin Phosphate) 50 Mg Tablet 50 Mg PO DAILY Vitals/I & O Vital Sign - Last 24 Hours 10/01/16 10/01/16 10/01/16 10/01/16 22:09 22:44 22:50 23:20 Temp 97.7 97.7 Pulse 105 94 100 Resp B/P 167/93 132/61 130/60 Pulse Ox 98 96 96 O2 Delivery Room Air Room Air Room Air 10/01/16 10/02/16 10/02/16 10/02/16 23:50 00:05 00:20 00:50 Pulse 102 106 108 Resp 16 B/P 134/61 147/69 136/82 Pulse Ox 93 95 93 O2 Delivery Room Air Room Air Room Air 10/02/16 10/02/16 10/02/16 10/02/16 01:20 01:42 03:00 03:50 Temp 99.1 98.8 99.1 98.8 Pulse 109 101 Resp B/P 129/83 137/78 Pulse Ox 93 95 O2 Delivery Room Air Room Air 10/02/16 10/02/16 10/02/16 10/02/16 04:20 07:14 08:00 10:45 Temp 98.3 98.1 98.3 98.1 Pulse 92 84 Resp B/P 118/71 128/73 Pulse Ox 92 94 O2 Delivery Room Air Room Air Room Air Room Air Intake and Output 10/01/16 10/01/16 10/02/16 15:00 23:00 07:00 Intake Total 1240 ml Balance 1240 ml KERVIN GARCIA MD Oct 02, 2016 12:24
--- NOTE | 2016-10-02 13:02 | RAD ---
CT study of the abdomen and pelvis with contrast Clinical indications: Right upper quadrant and epigastric pain with nausea and vomiting and diarrhea for 2 days. Technique: After IV infusion of 75 mL of Omnipaque 300, helical CT scanning of the abdomen and pelvis was performed. No GI contrast was administered. This may decrease the sensitivity to detect GI tract pathology. PQRS Compliance Statement: One or more of the following individualized dose reduction techniques were utilized for this examination: 1. Automated exposure control 2. Adjustment of the mA and/or kV according to patient size 3. Use of iterative reconstruction technique Comparison: No previous CT study. Right upper quadrant abdomen ultrasound study dated October 01, 2016. Findings: Diffuse fatty infiltration of the liver is seen. The liver is enlarged. The spleen is mildly enlarged measuring 14.2 cm in length. The spleen is homogeneous. The pancreas is homogeneous without focal enlargement. There is mild increased density within the root of the mesentery just inferior to the head of the pancreas. The gallbladder is not distended and no wall thickening is evident. Ultrasound study demonstrated acoustic shadowing within the gallbladder fossa obscuring the gallbladder by sonography. This is consistent with gallstones by sonography. No biliary ductal dilatation is seen. No adrenal mass is evident. Both kidneys are normal without hydronephrosis or hydroureter. No focal aneurysmal dilatation of the abdominal aorta is seen. No enlarged abdominal or pelvic lymphadenopathy is seen. No uterine mass is seen. No dominant ovarian cyst or mass is seen. The urinary bladder is not abnormally distended. The appendix and terminal ileum are unremarkable. No obstructive bowel pattern is seen. No free air or free fluid is seen. Calcified granuloma of the left lung base is seen. No lung base consolidation is evident. No osteolytic process is seen. IMPRESSION: Cholelithiasis seen by sonography. No biliary ductal dilatation is evident. There is increased density of the root of the mesentery just inferior to the head of the pancreas. Pancreatitis is a possibility therefore and recommend correlation with pancreatic enzymes. Hepatosplenomegaly. Fatty infiltration of the liver.
== END 2016-10-02 12:50 | disposition left against medical advice (07) ==
LOC: ER 21:41 → 5 SOUTH 10-02 00:20
PROVIDERS: ADMIT Internal Medicine; ATTEND Internal Medicine
DX: K81.9 Cholecystitis, unspecified (principal); R11.2 Nausea with vomiting, unspecified; R10.11 Right upper quadrant pain; E11.9 Type 2 diabetes mellitus without complications
CPT/HCPCS: 36415; 74177; 76705; 80048; 80053; 81001; 81025; 82947; 83690; 85027; 87086; 96361; 96365; 96375; 99285; G0378; J1170; J1815; J2270; J2405; J2543; J3480; J7030; Q9967; G0379

== ENCOUNTER 2016-10-09 11:26 | Emergency (ER) | payer OTHER ==
[~2016-10-09 11:26] MED LIST changes: +SITA50TA PO
[2016-10-09] MEDS ORDERED: IV NORMAL SALINE 1000ML BAG 1,000 ML IV SCH (15:06)
[2016-10-09] MEDS ORDERED: HYDROMORPHONE 2 MG/ML VIAL. IV ONE (15:15)
[2016-10-09] MEDS ORDERED: ONDANSETRON PF 4 MG/2 ML VIAL. IV ONE (15:15)
[2016-10-09 15:47] LABS: BILIRUBIN,URINE NEGATIVE (NEG); GLUCOSE,URINE NEGATIVE (NEG); NITRITE,URINE NEGATIVE (NEG); PH,URINE 6.5; PROTEIN,URINE NEGATIVE (NEG-TRACE); UROBILINOGEN,URINE 0.2 mg/dL (0.2 mg/dL)
[2016-10-09 15:49] LABS: NEG OBC UR NEG; POS OBC UR POS
--- NOTE | 2016-10-09 16:02 | ED.ADGEN ---
Past Medical History Past Medical History: Depression, Diabetes-Type II, Other Additional Past Medical Histor: abscess, chronic back pain Past Surgical History: No Surgical History Alcohol Use: None Drug Use: None Adult General Chief Complaint Chief Complaint: ABDOMINAL PAIN HPI HPI Patient is a 26 year old female presents emergency department complaining of right upper quadrant pain with associated nausea and vomiting. She was admitted one week ago for cholecystitis. However, the patient became fearful of the prospect of surgery and left AGAINST MEDICAL ADVICE. In the meantime she continues to experience significant pain and vomiting. She been taking only Tylenol without good relief since that time. Review of Systems Review of Systems Constitutional: Denies fever or chills. [] Eyes: Denies change in visual acuity. [] HENT: Denies nasal congestion or sore throat. [] Respiratory: Denies cough or shortness of breath. [] Cardiovascular: Denies chest pain or edema. [] GI: Denies abdominal pain, nausea, vomiting, bloody stools or diarrhea. [] : Denies dysuria. [] Musculoskeletal: Denies back pain or joint pain. [] Integument: Denies rash. [] Neurologic: Denies headache, focal weakness or sensory changes. [] Endocrine: Denies polyuria or polydipsia. [] Lymphatic: Denies swollen glands. [] Psychiatric: Denies depression or anxiety. [] Current Medications Current Medications Current Medications Medications (Trade) Dose Ordered Sig/Brian Start Time Stop Time Status Last Admin Dose Admin Hydromorphone HCl (Dilaudid) 1 mg 1X ONCE 10/09/16 15:15 10/09/16 15:16 DC 10/09/16 15:59 1 MG Ondansetron HCl 4 mg 4 mg 1X ONCE 10/09/16 15:15 10/09/16 15:16 DC 10/09/16 15:58 4 MG Sodium Chloride (Iv Sodium Chloride 0.9% 1000ml Bag) 1,000 ml @ 1,000 mls/hr Q1H 10/09/16 15:06 10/09/16 16:05 DC 10/09/16 15:53 1,000 MLS/HR Allergies Allergies Allergies Coded Allergies Type Severity Reaction Last Updated Verified ibuprofen Allergy Intermediate 12/05/15 No naproxen Allergy Intermediate 12/05/15 No Physical Exam Physical Exam Constitutional: Well developed, well nourished, moderate acute distress, non- toxic appearance. [] HENT: Normocephalic, atraumatic, bilateral external ears normal, oropharynx moist, no oral exudates, nose normal. [] Eyes: PERRLA, EOMI, conjunctiva normal, no discharge. [] Neck: Normal range of motion, no tenderness, supple, no stridor. [] Cardiovascular:Heart rate regular rhythm, no murmur [] Lungs & Thorax: Bilateral breath sounds clear to auscultation [] Abdomen: Bowel sounds normal, soft, moderate RUQ tenderness without peritoneal signs, no masses, no pulsatile masses. [] Skin: Warm, dry, no erythema, no rash. [] Back: No tenderness, no CVA tenderness. [] Extremities: No tenderness, no cyanosis, no clubbing, ROM intact, no edema. [] Neurologic: Alert and oriented X 3, normal motor function, normal sensory function, no focal deficits noted. [] Psychologic: Affect normal, judgement normal, mood normal. [] Current Patient Data Vital Signs Vital Signs Date Time Temp Pulse Resp B/P Pulse Ox O2 Delivery O2 Flow Rate FiO2 10/09/16 17:45 89 16 112/79 95 Room Air 10/09/16 13:50 98.4 98.4 Lab Values Laboratory Tests Test 10/09/16 13:50 10/09/16 15:45 Urine Collection Type Unknown Urine Color Yellow Urine Clarity Clear Urine pH 6.5 Urine Specific [place] 1.015 Urine Protein Negativemg/dL (NEG-TRACE) Urine Glucose (UA) Negativemg/dL (NEG) Urine Ketones (Stick) Negativemg/dL (NEG) Urine Blood Negative (NEG) Urine Nitrite Negative (NEG) Urine Bilirubin Negative (NEG) Urine Urobilinogen Dipstick 0.2mg/dL (0.2 mg/dL) Urine Leukocyte Esterase Negative (NEG) Urine RBC 0/HPF (0-2) Urine WBC Occ/HPF (0-4) Urine Squamous Epithelial Cells Mod/LPF Urine Bacteria 0/HPF (0-FEW) Urine Mucus Mod/LPF Urine Test Negative (NEG) White Blood Count 11.7x10^3/uL (4.0-11.0) H Red Blood Count 4.67x10^6/uL (3.50-5.40) Hemoglobin 14.2g/dL (12.0-15.5) Hematocrit 42.7% (36.0-47.0) Mean Corpuscular Volume 92fL (79-100) Mean Corpuscular Hemoglobin 30pg (25-35) Mean Corpuscular Hemoglobin Concent 33g/dL (31-37) Red Cell Distribution Width 13.0% (11.5-14.5) Platelet Count 280x10^3/uL (140-400) Neutrophils (%) (Auto) 66% (31-73) Lymphocytes (%) (Auto) 26% (24-48) Monocytes (%) (Auto) 6% (0-9) Eosinophils (%) (Auto) 2% (0-3) Basophils (%) (Auto) 1% (0-3) Neutrophils # (Auto) 7.7x10^3uL (1.8-7.7) Lymphocytes # (Auto) 3.0x10^3/uL (1.0-4.8) Monocytes # (Auto) 0.7x10^3/uL (0.0-1.1) Eosinophils # (Auto) 0.2x10^3/uL (0.0-0.7) Basophils # (Auto) 0.1x10^3/uL (0.0-0.2) Prothrombin Time 12.9SEC (11.7-14.0) Prothrombin Time INR 1.0 (0.8-1.1) PTT 26SEC (24-38) Sodium Level 135mmol/L (136-145) L Potassium Level 3.8mmol/L (3.5-5.1) Chloride Level 97mmol/L (98-107) L Carbon Dioxide Level 32mmol/L (21-32) Anion Gap 6 (6-14) Blood Urea Nitrogen 5mg/dL (7-20) L Creatinine 0.7mg/dL (0.6-1.0) Estimated GFR (Cockcroft-Gault) 99.6 Glucose Level 157mg/dL (70-99) H Calcium Level 9.3mg/dL (8.5-10.1) Aspartate Amino Transferase (AST) 12U/L (15-37) L Alanine Aminotransferase (ALT) 22U/L (14-59) Alkaline Phosphatase 95U/L (46-116) Lipase 122U/L (73-393) Laboratory Tests 1/9/17 15:45 Laboratory Tests 10/09/16 15:45 EKG EKG [] Radiology/Procedures Radiology/Procedures [] Course & Med Decision Making Course & Med Decision Making Pertinent Labs and Imaging studies reviewed. (See chart for details) We will repeat labs and treat her symptomatically with IV fluids, Zofran, and Dilaudid and proceed from there. Patient has improved pain after medication. Her lab work is similar or better than it was previously. The combination of these things comply with the equivocal findings of her previous imaging done necessarily indicate cholecystitis to me. I did call to discuss this with the surgeon who is busy with a case for some time. Therefore, I did have a long discussion with the patient regarding follow-up as an outpatient versus waiting to discuss with the surgeon whether or not he felt she needed more urgent surgery. The patient opted to go home with prescriptions for Assonet and Zofran. She will follow-up in his office in the next few days return emergency department sooner she develops any new or worsening symptoms. Cholelithiasis [] Dragon Disclaimer Dragon Disclaimer This electronic medical record was generated, in whole or in part, using a voice recognition dictation system. JOSE G STEVE MD Oct 09, 2016 16:01
[2016-10-09 16:04] LABS: BASO # 0.1 x10^3/uL (0.0-0.2); BASO % 1 % (0-3); EOS % 2 % (0-3); HEMATOCRIT 42.7 % (36.0-47.0); HEMOGLOBIN 14.2 g/dL (12.0-15.5); LYMPH % 26 % (24-48); MEAN CORPUSCULAR HEMOGLOBIN 30 pg (25-35); MEAN CORPUSCULAR HGB CONC 33 g/dL (31-37); MEAN CORPUSCULAR VOLUME 92 fL (79-100); MONO % 6 % (0-9); NEUT % 66 % (31-73); PLATELET COUNT 280 x10^3/uL (140-400); RED BLOOD COUNT 4.67 x10^6/uL (3.50-5.40); WHITE BLOOD COUNT 11.7 x10^3/uL (4.0-11.0)
[2016-10-09 16:11] LABS: BACTERIA,URINE 0 /HPF (0-FEW); RBC,URINE 0 /HPF (0-2); SQUAMOUS EPITHELIAL CELL,UR MOD /LPF; WBC,URINE OCC /HPF (0-4)
[2016-10-09 16:14] LABS: CALCIUM 9.3 mg/dL (8.5-10.1); CREATININE 0.7 mg/dL (0.6-1.0); GFR 99.6; POTASSIUM 3.8 mmol/L (3.5-5.1)
[2016-10-09 16:16] LABS: PROTHROMBIN TIME PATIENT 12.9 SEC (11.7-14.0)
[2016-10-09] MEDS ORDERED: ONDA4TAB10 SL (16:54)
[2016-10-09] MEDS ORDERED: HYDR-971 PO (16:54)
[2016-10-09 17:45] VITALS: BP 112/79
== END 2016-10-09 17:54 | disposition home or self-care (01) ==
LOC: ER 11:26
DX: R10.11 Right upper quadrant pain (principal); R11.2 Nausea with vomiting, unspecified; G89.29 Other chronic pain; E11.9 Type 2 diabetes mellitus without complications; M54.89 Other dorsalgia; Z88.6 Allergy status to analgesic agent; Z88.8 Allergy status to other drugs, medicaments and biological substances
CPT/HCPCS: 36415; 80048; 81001; 81025; 83690; 84075; 84450; 84460; 85027; 85610; 85730; 96361; 96374; 96375; 99284; J1170; J2405; J7030

== ENCOUNTER 2016-10-17 12:55 | Observation (INO) | payer OTHER ==
[2016-10-17] VITALS (9 sets, daily range): BP systolic 109–146; BP diastolic 47–83
[~2016-10-17] VITALS: Ht 177.8 cm; Wt 116.1 kg
[~2016-10-17 12:55] MED LIST changes: +CEFAZOLIN 2GM PREMIX 50 ML IV PRN; +EPHEDRINE SULFATE 50 MG/ML VIAL. ONE; +HYDR-971 PO; +HYDROMORPHONE 2 MG/ML VIAL. IV PRN; +LIDOCAINE 1% 1 ML SYRINGE. ID PRN; +LIDOCAINE 2% 100 MG/5 ML DISP.SYRIN. ONE; +MORPHINE SULFATE 2 MG/ML DISP.SYRIN. IV PRN; +ONDA4TAB10 SL; +ONDANSETRON PF 4 MG/2 ML VIAL. IV PRN; +PROCHLORPERAZINE 10 MG/2 ML VIAL. IV PRN; +PROPOFOL 20 ML IV ONE; +ROCURONIUM 100 MG/10 ML VIAL. ONE; +SUCCINYLCHOLINE 200 MG/10 ML VIAL. ONE
[2016-10-17] MEDS ORDERED: IOHEXOL 300 MG/ML 50 ML VIAL. ONE (13:26)
[2016-10-17] MEDS ORDERED: SURGICEL HEMOSTAT 4X8 EACH. ONE (13:26)
[2016-10-17] MEDS ORDERED: BUPIVACAINE-EPI 0.5%-1:200000 50 ML VIAL. ONE (13:26)
[2016-10-17] MEDS: IV RINGERS,LACTATED 1000ML 1,000 ML IV SCH ×2 (14:05→17:23)
[2016-10-17 14:15] LABS: NEG OBC UR NEG; POS OBC UR POS
[2016-10-17] MEDS ORDERED: FENTANYL PF 100 MCG/2 ML VIAL. ONE ×2 (14:28→16:17)
[2016-10-17] MEDS ORDERED: DEXAMETHASONE SOD PHOS 20 MG/5 ML VIAL. ONE (14:39)
[2016-10-17] MEDS ORDERED: DESFLURANE 31 TO 60 MINUTES IH ONE (14:39)
[2016-10-17] MEDS ORDERED: GLYCOPYRROLATE 1 MG/5 ML VIAL. ONE (14:52)
[2016-10-17] MEDS ORDERED: NEOSTIGMINE METHYLSULFATE 5 MG/5 ML SYRINGE. ONE (14:52)
[2016-10-17] MEDS ORDERED: ONDANSETRON PF 4 MG/2 ML VIAL. ONE (14:52)
[2016-10-17] MEDS ORDERED: ROCURONIUM 50 MG/5 ML VIAL. ONE (15:06)
[2016-10-17] MEDS ORDERED: LABETALOL 20 MG/4 ML DISP.SYRIN. ONE (15:42)
--- NOTE | 2016-10-17 15:45 | RAD ---
Indication operative cholangiogram. For members of the Department of surgery fluoroscopy was provided during operative cholangiogram. 3 spot fluoroscopic images were obtained. On the first 2 images there is a suggested possible filling defect in the common hepatic duct. The third image however is unremarkable. The findings on the first 2 images are probably artifactual. Choledocholithiasis cannot be entirely excluded but is felt unlikely. Some contrast is noted in the duodenum. Fluoroscopy time associated with the examination was 0.18 minutes. IMPRESSION: Possible filling defects on the first 2 images are probably artifactual. Choledocholithiasis is felt unlikely but cannot be entirely excluded
[2016-10-17] MEDS ORDERED: SEVOFLURANE > 120 MINUTES. IH ONE (16:13)
[2016-10-17] MEDS ORDERED: PROCHLORPERAZINE 10 MG/2 ML VIAL. IV PRN (16:30)
[2016-10-17] MEDS ORDERED: HYDROMORPHONE 2 MG/ML VIAL. IV PRN ×2 (16:30→17:45)
[2016-10-17] MEDS ORDERED: OXYCODONE/APAP 5/325 TABLET. PO PRN (16:30)
[2016-10-17] MEDS ORDERED: ONDANSETRON PF 4 MG/2 ML VIAL. IV PRN (16:30)
[2016-10-17] MEDS ORDERED: 0.9 % SODIUM CHLORIDE 10 ML DISP.SYRIN. IV PRN (16:30)
[2016-10-17] MEDS ORDERED: DEXTROSE 50% 25 GM / 50ML DISP.SYRIN. IV PRN (16:30)
--- NOTE | 2016-10-17 16:30 | PDOC4 ---
Operative Note Operative Note Operative Note: Preoperative Diagnosis: Calculus cholecystitis Postoperative Diagnosis: Same Procedure: Laparoscopic cholecystectomy with intraoperative cholangiogram Surgeons: Scot Anesthesia: GenNima Estimated Blood Loss: 25 mL Specimen: Gallbladder to pathology Drains: None Complications: None Indications: The patient is a 26-year-old female who is been experiencing recurrent upper abdominal pain consistent with biliary colic. Her evaluation is consistent with calculus cholecystitis. Surgical treatment was offered by means of a laparoscopic cholecystectomy. The risks of surgery were discussed which include bleeding, infection, bile duct injury, bile leak, pain, the potential for additional surgeries or procedures. The patient understands and would like to proceed. Description: The patient was taken to the operating room and laid supine on the operating table. General anesthesia was performed. The abdomen was prepped with ChloraPrep and draped in a standard surgical fashion. A small supraumbilical incision was made with a scalpel. I attempted to place a veress needle but had some difficulty confidently gaining intraperitoneal access. A separate 5 mm visualized trocar was insert in the right abdomen under visualization and a pneumoperitoneum was created. The laparoscope was then introduced. There was no evidence of intra-abdominal bleeding or visceral injury. In the upper midabdomen a 5 mm trocar was inserted and in the right upper quadrant two 5 mm trochars were inserted. The gallbladder was retracted cephalad. The gallbladder showed thickening of the wall with some chronic adhesions consistent with calculus cholecystitis. The cystic duct was dissected free from surrounding tissues. One clip was placed on the duct near the gallbladder junction. An opening was made in the duct and a cholangiocatheter placed within and secured with a clip. Using contrast dye and fluoroscopy an intraoperative cholangiogram was performed that appeared unremarkable. The clip and catheter were then withdrawn. Three clips were placed on the cystic duct and it was divided. The cystic artery was then identified, dissected free, doubly clipped and divided as well. In addition there was a sizable posterior vessel which was dissected free, clipped and divided. The gallbladder was then mobilized away from the liver with cautery. The superior abdominal 5 millimeter trocar was exchanged for an 11 millimeter trocar. A Surgicel pack was placed on the gallbladder fossa to assist with any oozing. The gallbladder was then placed in an endoscopic bag and extracted at the superior trocar site. The skin and fascial incisions had to be extended due to the thickened and large gallbladder and numerous large gallstones. The fascia was then reapproximated with interrupted 0 PDS sutures. All blood and irrigation fluid was suctioned and hemostasis was good. The remaining ports were removed and the pneumoperitoneum was relieved. The skin incisions were injected with half percent Marcaine with epinephrine, and all were closed using 4-0 Monocryl suture. Steri-Strips and dressings were then applied. The patient tolerated the procedure well and was sent to the recovery room in stable condition. At the end of the case all counts were correct. DIONICIO POPE MD Oct 17, 2016 16:30
[2016-10-17] MEDS: FENTANYL PF 100 MCG/2 ML VIAL. IV PRN ×5 (16:40→17:36)
[2016-10-17] MEDS: INSULIN ASPART 300 UNITS/3 ML INSULN.PEN SQ SCH ×2 (17:00→19:08)
[2016-10-17] MEDS ORDERED: INSULIN ASPART 100 UNIT/ML 10ML VIAL. SQ STA (17:44)
[2016-10-17] MEDS ORDERED: INSULIN ASPART 100 UNIT/ML 10ML VIAL. SQ ONE (17:44)
[2016-10-17] MEDS: OXYCODONE/APAP 5/325 TABLET. PO PRN ×2 (18:37→23:11)
[2016-10-17] MEDS: POTASSIUM CL 20MEQ-0.45% NACL 1,000 ML IV SCH (18:37)
[2016-10-17] MEDS ORDERED: INSULIN ASPART 300 UNITS/3 ML INSULN.PEN SQ ONE (23:30)
[2016-10-18 03:08] VITALS: BP 122/59
[2016-10-18 05:15] LABS: CALCIUM 9.6 mg/dL (8.5-10.1); CREATININE 0.7 mg/dL (0.6-1.0); GFR 99.6; POTASSIUM 4.8 mmol/L (3.5-5.1)
[2016-10-18 05:20] LABS: ALBUMIN 3.4 g/dL (3.4-5.0); ALBUMIN/GLOBULIN RATIO 0.9 (1.0-1.7); TOTAL BILIRUBIN 0.6 mg/dL (0.2-1.0); TOTAL PROTEIN 7.2 g/dL (6.4-8.2)
[2016-10-18] MEDS: POTASSIUM CL 20MEQ-0.45% NACL 1,000 ML IV SCH (05:27)
[2016-10-18 07:00] VITALS: BP 118/73
[2016-10-18] MEDS: INSULIN ASPART 300 UNITS/3 ML INSULN.PEN SQ SCH ×2 (08:03→11:53)
[2016-10-18] MEDS ORDERED: LINAGLIPTIN 5 MG TABLET PO SCH (09:00)
[2016-10-18 11:00] VITALS: BP 137/83
--- NOTE | 2016-10-18 12:11 | PDOC ---
PROGRESS NOTES Subjective Subjective doing well Objective Objective Vital Signs Date Time Temp Pulse Resp B/P Pulse Ox O2 Delivery O2 Flow Rate FiO2 10/18/16 11:00 97.7 85 16 137/83 95 Room Air 97.7 10/17/16 18:45 2.0 Intake and Output 10/18/16 07:00 Intake Total 2657 ml Output Total 25 ml Balance 2632 ml Intake Oral 510 ml IV Total 2147 ml Output Estimated Blood Loss 25 ml # Voids 100 Physical Exam Abdomen: Soft, No tenderness Assessment Assessment Problems Medical Problems: (1) Calculous cholecystitis Status: Acute Plan Plan of Care discharge Comment Review of Relevant I have reviewed the following items yas (where applicable) has been applied. Labs Laboratory Tests Test 10/17/16 12:12 10/17/16 17:41 10/17/16 18:43 10/17/16 22:21 Urine Test Negative (NEG) Glucose (Fingerstick) 294mg/dL (70-99) 306mg/dL (70-99) 382mg/dL (70-99) Test 10/18/16 04:11 10/18/16 07:56 10/18/16 10:49 Sodium Level 135mmol/L (136-145) Potassium Level 4.8mmol/L (3.5-5.1) Chloride Level 96mmol/L (98-107) Carbon Dioxide Level 28mmol/L (21-32) Anion Gap 11 (6-14) Blood Urea Nitrogen 11mg/dL (7-20) Creatinine 0.7mg/dL (0.6-1.0) Estimated GFR (Cockcroft-Gault) 99.6 BUN/Creatinine Ratio 16 (6-20) Glucose Level 248mg/dL (70-99) Calcium Level 9.6mg/dL (8.5-10.1) Total Bilirubin 0.6mg/dL (0.2-1.0) Aspartate Amino Transf (AST/SGOT) 27U/L (15-37) Alanine Aminotransferase (ALT/SGPT) 57U/L (14-59) Alkaline Phosphatase 106U/L (46-116) Total Protein 7.2g/dL (6.4-8.2) Albumin 3.4g/dL (3.4-5.0) Albumin/Globulin Ratio 0.9 (1.0-1.7) Glucose (Fingerstick) 228mg/dL (70-99) 265mg/dL (70-99) Laboratory Tests Test 10/17/16 12:12 10/17/16 17:41 10/17/16 18:43 10/17/16 22:21 Urine Test Negative (NEG) Glucose (Fingerstick) 294mg/dL (70-99) 306mg/dL (70-99) 382mg/dL (70-99) Test 10/18/16 04:11 10/18/16 07:56 10/18/16 10:49 Sodium Level 135mmol/L (136-145) Potassium Level 4.8mmol/L (3.5-5.1) Chloride Level 96mmol/L (98-107) Carbon Dioxide Level 28mmol/L (21-32) Anion Gap 11 (6-14) Blood Urea Nitrogen 11mg/dL (7-20) Creatinine 0.7mg/dL (0.6-1.0) Estimated GFR (Cockcroft-Gault) 99.6 BUN/Creatinine Ratio 16 (6-20) Glucose Level 248mg/dL (70-99) Calcium Level 9.6mg/dL (8.5-10.1) Total Bilirubin 0.6mg/dL (0.2-1.0) Aspartate Amino Transf (AST/SGOT) 27U/L (15-37) Alanine Aminotransferase (ALT/SGPT) 57U/L (14-59) Alkaline Phosphatase 106U/L (46-116) Total Protein 7.2g/dL (6.4-8.2) Albumin 3.4g/dL (3.4-5.0) Albumin/Globulin Ratio 0.9 (1.0-1.7) Glucose (Fingerstick) 228mg/dL (70-99) 265mg/dL (70-99) Medications Current Medications Ondansetron HCl (Zofran) 4 mg PRN Q6HRS PRN IV Nausea Last administered on 10/17 22:07; Start 10/17/16 at 07:00; Stop 10/18/16 at 06:59; Status DC Fentanyl Citrate (Fentanyl 2ml Vial) 25 mcg PRN Q5MIN PRN IV MILD PAIN Last administered on 10/17/16 16:47; Start 10/17/16 at 07:00; Stop 10/18/16 at 06:59 ; Status DC Fentanyl Citrate (Fentanyl 2ml Vial) 50 mcg PRN Q5MIN PRN IV MODERATE PAIN Last administered on 10/17/16t 17:36; Start 10/17/16 at 07:00; Stop 10/18/16 at 06:59; Status DC Morphine Sulfate 1 mg 1 mg PRN Q10MIN PRN IV SEVERE PAIN; Start 10/17/16 at 07: 00; Stop 10/18/16 at 06:59; Status DC Lactated Ringer's (Iv Lactated Ringers) 1,000 ml @ 30 mls/hr Q24H IV Last administered on 10/17/16 17:23; Start 10/17/16 at 07:00; Stop 10/17/16 at 18:59 ; Status DC Lidocaine HCl 2 ml 1X PRN PRN ID IV START; Start 10/17/16 at 07:00; Stop at 06:59; Status DC Hydromorphone HCl (Dilaudid) 0.5 mg PRN Q10MIN PRN IV SEVERE PAIN, Second choice; Start 10/17/16 at 07:00; Stop 10/18/16 at 06:59; Status DC Prochlorperazine Edisylate 5 mg 5 mg PACU PRN PRN IV NAUSEA; Start 10/17/16 at 07:00; Stop 10/18/16 at 06:59; Status DC Cefazolin Sodium/ Dextrose (Ancef 2gm Premix) 50 ml @ 100 mls/hr 1X PREOP PRN IV PRIOR TO PROCEDURE Last administered on 10/17/16 14:42; Start 10/17/16 at 06 :00; Stop 10/17/16 at 18:00; Status DC Rocuronium [place] 100 mg 100 mg STK-MED ONCE .ROUTE ; Start 10/17/16 at 12:40; Stop 10/17/16 at 12:41; Status DC Propofol (Diprivan) 20 ml @ As Directed STK-MED ONCE IV ; Start 10/17/16 at 12: 40; Stop 10/17/16 at 12:41; Status DC Lidocaine HCl 100 mg STK-MED ONCE .ROUTE ; Start 10/17/16 at 12:40; Stop at 12:41; Status DC Succinylcholine Chloride (Anectine) 200 mg STK-MED ONCE .ROUTE ; Start 10/17/16 at 12:40; Stop 10/17/16 at 12:41; Status DC Ephedrine Sulfate (Akovaz) 50 mg STK-MED ONCE .ROUTE ; Start 10/17/16 at 12:48; Stop 10/17/16 at 12:49; Status DC Cellulose 1 each STK-MED ONCE .ROUTE Last administered on 10/17/16t 15:37; Start 10/17/16 at 13:26; Stop 10/17/16 at 13:27; Status DC Iohexol (Omnipaque 300 Mg/ml) 50 ml STK-MED ONCE .ROUTE Last administered on 15:22; Start 10/17/16 at 13:26; Stop 10/17/16 at 13:27; Status DC Bupivacaine HCl/ Epinephrine Bitart (Marcaine-Epi 0.5%-1:[id number]) 50 ml STK-MED ONCE .ROUTE Last administered on 10/17/16 14:58; Start 10/17/16 at 13:26; Stop 10/17/16 at 13:27; Status DC Fentanyl Citrate (Fentanyl 2ml Vial) 100 mcg STK-MED ONCE .ROUTE ; Start at 14:28; Stop 10/17/16 at 14:29; Status DC Dexamethasone Sodium Phosphate (Decadron) 20 mg STK-MED ONCE .ROUTE ; Start at 14:39; Stop 10/17/16 at 14:40; Status DC Desflurane (Suprane) 30 ml STK-MED ONCE IH ; Start 10/17/16 at 14:39; Stop 10/17 at 14:40; Status DC Ondansetron HCl (Zofran) 4 mg STK-MED ONCE .ROUTE ; Start 10/17/16 at 14:52; Stop 10/17/16 at 14:53; Status DC Glycopyrrolate (Robinul) 1 mg STK-MED ONCE .ROUTE ; Start 10/17/16 at 14:52; Stop 10/17/16 at 14:53; Status DC Neostigmine Methylsulfate 5 mg STK-MED ONCE .ROUTE ; Start 10/17/16 at 14:52; Stop 10/17/16 at 14:53; Status DC Rocuronium [place] (Zemuron) 50 mg STK-MED ONCE .ROUTE ; Start 10/17/16 at 15:06 ; Stop 10/17/16 at 15:07; Status DC Labetalol HCl (Normodyne) 20 mg STK-MED ONCE .ROUTE ; Start 10/17/16 at 15:42; Stop 10/17/16 at 15:43; Status DC Sevoflurane (Ultane) 90 ml STK-MED ONCE IH ; Start 10/17/16 at 16:13; Stop 10/17 at 16:14; Status DC Fentanyl Citrate (Fentanyl 2ml Vial) 100 mcg STK-MED ONCE .ROUTE ; Start at 16:17; Stop 10/17/16 at 16:18; Status DC Sodium Chloride 3 ml 3 ml QSHIFT PRN IV AFTER MEDS AND BLOOD DRAWS; Start 10/17 at 16:30 Potassium Chloride/Sodium Chloride (KCl 20 Meq-0.45% Nacl) 1,000 ml @ 80 mls/ hr [id number] IV Last administered on 10/17/16 18:37; Start 10/17/16 at 16:30; Stop 10/18/16 at 07:11; Status DC Insulin Aspart (Novolog) 0-5 UNITS TIDWMEALS SQ Last administered on 10/18/16 11:53; Start 10/17/16 at 17:00 Dextrose 12.5 gm PRN Q15MIN PRN IV SEE COMMENTS; Start 10/17/16 at 16:30 Oxycodone/ Acetaminophen (Percocet 5/325) 1 tab PRN Q4HRS PRN PO MILD PAIN, 1ST CHOICE Last administered on 10/17/16 23:11; Start 10/17/16 at 16:30 Oxycodone/ Acetaminophen (Percocet 5/325) 2 tab PRN Q4HRS PRN PO MODERATE PAIN , SEVERE PAIN Last administered on 10/18/16 05:27; Start 10/17/16 at 16:30 Hydromorphone HCl (Dilaudid) 0.2 mg PRN Q2HRS PRN IV PAIN Last administered on 10/17/16 22:07; Start 10/17/16 at 16:30 Ondansetron HCl (Zofran) 4 mg PRN Q6HRS PRN IV NAUESA, 1ST CHOICE; Start at 16:30 Prochlorperazine Edisylate (Compazine) 5 mg PRN Q6HRS PRN IV N/V, 2nd Choice, MR X1; Start 10/17/16 at 16:30 Linagliptin (Tradjenta) 5 mg DAILY PO Last administered on 10/18/16t 08:00; Start 10/18/16 at 09:00 Hydromorphone HCl (Dilaudid) 0.5 mg PRN Q2HRS PRN IV PAIN; Start 10/17/16 at 17 :45 Insulin Aspart (Novolog Vial) 100 unit STK-MED ONCE SQ ; Start 10/17/16 at 17:44 ; Stop 10/17/16 at 17:45; Status DC Insulin Aspart (Novolog Vial) 4 unit 1X STAT SQ Last administered on 18:01; Start 10/17/16 at 17:44; Stop 10/17/16 at 17:48; Status DC Insulin Aspart (Novolog) 5 units 1X ONCE SQ Last administered on 10/17/16 23: 11; Start 10/17/16 at 23:30; Stop 10/17/16 at 23:31; Status DC Active Scripts Active Zofran Odt (Ondansetron) 4 Mg Tab.rapdis 1 Tab SL Q6HRS PRN [place] 5-325 Tablet (Acetaminophen/Hydrocodone Bitart) 1 Each Tablet 1-2 Tab PO Q6HRS PRN Reported Januvia (Sitagliptin Phosphate) 50 Mg Tablet 50 Mg PO DAILY Vitals/I & O Vital Sign - Last 24 Hours 10/17/16 10/17/16 10/17/16 10/17/16 13:48 13:52 16:18 16:22 Temp 97.2 97.2 97.2 97.2 97.2 97.2 Pulse 98 98 90 Resp 18 18 16 B/P 127/85 120/50 Pulse Ox 97 97 87 O2 Delivery Room Air Room Air 10/17/16 10/17/16 10/17/16 10/17/16 16:37 16:40 16:47 16:52 Temp 97.2 97.2 97.2 97.2 Pulse 94 78 Resp 18 20 20 20 B/P 165/71 107/50 Pulse Ox 95 95 95 95 O2 Delivery Nasal Cannula Nasal Cannula Nasal Cannula Nasal Cannula O2 Flow Rate 5 5.0 5.0 5.0 10/17/16 10/17/16 10/17/16 10/17/16 17:05 17:07 17:18 17:22 Temp 97.8 97.3 97.8 97.3 Pulse 78 77 Resp 20 20 20 20 B/P 114/47 124/51 Pulse Ox 98 98 97 96 O2 Delivery Nasal Cannula Nasal Cannula Nasal Cannula Nasal Cannula O2 Flow Rate 5.0 2 2.0 2.0 10/17/16 10/17/16 10/17/16 10/17/16 17:36 17:37 17:52 18:00 Temp 97.3 97.3 97.3 97.3 Pulse 85 88 Resp 20 20 20 B/P 133/43 123/55 Pulse Ox 96 95 96 O2 Delivery Room Air Nasal Cannula Nasal Cannula Nasal Cannula O2 Flow Rate 2.0 2.0 2.0 2 10/17/16 10/17/16 10/17/16 10/17/16 18:10 18:15 18:30 18:37 Temp 97.7 97.7 Pulse 102 111 Resp 18 18 B/P 139/71 126/80 Pulse Ox 96 97 O2 Delivery Nasal Cannula Nasal Cannula Nasal Cannula Nasal Cannula O2 Flow Rate 2.0 2.0 2.0 2.0 10/17/16 10/17/16 10/17/16 10/17/16 18:38 18:45 19:00 19:30 Temp 97.7 97.7 98.6 97.7 97.7 98.6 Pulse 102 103 109 123 Resp 18 18 18 B/P 139/71 132/69 136/81 146/62 Pulse Ox 96 94 90 95 O2 Delivery Nasal Cannula Nasal Cannula Room Air Room Air O2 Flow Rate 2.0 10/17/16 10/17/16 10/17/16 10/17/16 20:00 20:20 21:00 22:07 Pulse 112 111 Resp 20 B/P 117/50 109/47 Pulse Ox 97 92 92 O2 Delivery Room Air Room Air Room Air Room Air 10/17/16 10/17/16 10/17/16 10/18/16 22:40 23:11 23:34 00:15 Temp 98.4 98.4 Pulse 121 Resp 20 20 16 20 B/P 133/83 Pulse Ox 92 92 94 94 O2 Delivery Room Air Room Air Room Air Room Air 10/18/16 10/18/16 10/18/16 10/18/16 03:08 05:27 06:27 07:00 Temp 97.7 97.9 97.7 97.9 Pulse 94 82 Resp 18 20 20 18 B/P 122/59 118/73 Pulse Ox 91 91 91 98 O2 Delivery Room Air Room Air Room Air Room Air 10/18/16 10/18/16 07:40 11:00 Temp 97.7 97.7 Pulse 85 Resp 16 B/P 137/83 Pulse Ox 95 O2 Delivery Room Air Room Air Intake and Output 10/17/16 10/17/16 10/18/16 15:00 23:00 07:00 Intake Total 1390 ml 1267 ml Output Total 25 ml Balance 1365 ml 1267 ml DIONICIO POPE MD Oct 18, 2016 12:11
--- NOTE | 2016-10-18 12:14 | PDOC3 ---
Discharge Summary Visit Information Date of Admission: Oct 17, 2016 Date of Discharge: Oct 18, 2016 Admitting Diagnosis: Calculous cholecystitis Final Diagnosis Problems Medical Problems: (1) Calculous cholecystitis Status: Acute Brief Hospital Course Allergies Allergies Coded Allergies Type Severity Reaction Last Updated Verified ibuprofen Allergy Intermediate 10/18/16 Yes naproxen Allergy Intermediate 10/18/16 Yes Vital Signs Vital Signs Date Time Temp Pulse Resp B/P Pulse Ox O2 Delivery O2 Flow Rate FiO2 10/18/16 11:00 97.7 85 16 137/83 95 Room Air 97.7 10/17/16 18:45 2.0 Lab Results Laboratory Tests Test 10/17/16 12:12 10/17/16 17:41 10/17/16 18:43 10/17/16 22:21 Urine Test Negative (NEG) Glucose (Fingerstick) 294mg/dL (70-99) 306mg/dL (70-99) 382mg/dL (70-99) Test 10/18/16 04:11 10/18/16 07:56 10/18/16 10:49 Sodium Level 135mmol/L (136-145) Potassium Level 4.8mmol/L (3.5-5.1) Chloride Level 96mmol/L (98-107) Carbon Dioxide Level 28mmol/L (21-32) Anion Gap 11 (6-14) Blood Urea Nitrogen 11mg/dL (7-20) Creatinine 0.7mg/dL (0.6-1.0) Estimated GFR (Cockcroft-Gault) 99.6 BUN/Creatinine Ratio 16 (6-20) Glucose Level 248mg/dL (70-99) Calcium Level 9.6mg/dL (8.5-10.1) Total Bilirubin 0.6mg/dL (0.2-1.0) Aspartate Amino Transf (AST/SGOT) 27U/L (15-37) Alanine Aminotransferase (ALT/SGPT) 57U/L (14-59) Alkaline Phosphatase 106U/L (46-116) Total Protein 7.2g/dL (6.4-8.2) Albumin 3.4g/dL (3.4-5.0) Albumin/Globulin Ratio 0.9 (1.0-1.7) Glucose (Fingerstick) 228mg/dL (70-99) 265mg/dL (70-99) Laboratory Tests Test 10/17/16 17:41 10/17/16 18:43 10/17/16 22:21 10/18/16 04:11 Glucose (Fingerstick) 294mg/dL (70-99) 306mg/dL (70-99) 382mg/dL (70-99) Sodium Level 135mmol/L (136-145) Potassium Level 4.8mmol/L (3.5-5.1) Chloride Level 96mmol/L (98-107) Carbon Dioxide Level 28mmol/L (21-32) Anion Gap 11 (6-14) Blood Urea Nitrogen 11mg/dL (7-20) Creatinine 0.7mg/dL (0.6-1.0) Estimated GFR (Cockcroft-Gault) 99.6 BUN/Creatinine Ratio 16 (6-20) Glucose Level 248mg/dL (70-99) Calcium Level 9.6mg/dL (8.5-10.1) Total Bilirubin 0.6mg/dL (0.2-1.0) Aspartate Amino Transf (AST/SGOT) 27U/L (15-37) Alanine Aminotransferase (ALT/SGPT) 57U/L (14-59) Alkaline Phosphatase 106U/L (46-116) Total Protein 7.2g/dL (6.4-8.2) Albumin 3.4g/dL (3.4-5.0) Albumin/Globulin Ratio 0.9 (1.0-1.7) Test 10/18/16 07:56 10/18/16 10:49 Glucose (Fingerstick) 228mg/dL (70-99) 265mg/dL (70-99) Brief Hospital Course Ms. Morales is a 26 old female who presented with calculous cholecystitis. She underwent a laparoscopic cholecystectomy and her postoperative recovery was uneventful. She will be discharged on POD 1. Discharge Information Follow Up: Weeks (2 weeks) Disposition/Orders: D/C to Home Scheduled Sitagliptin Phosphate (Januvia) 50 MG PO DAILY (Reported) Scheduled PRN Hydrocodone/Apap 5-325 ([place] 5-325 Tablet) 1-2 TAB PO Q6HRS PRN PRN PAIN Ondansetron (Zofran Odt) 1 TAB SL Q6HRS PRN PRN NAUSEA/VOMITING DIONICIO POPE MD 18, 2017 12:13
--- NOTE | 2016-10-19 17:22 | PATHOLOGY ---
PATHOLOGY REPORT * * * * * * * * FINAL DIAGNOSIS: Gallbladder, laparoscopic cholecystectomy: - Cholelithiasis. - Chronic cholecystitis. COMMENT: There is no evidence of malignancy. (JPM:csd; d/t: 10/19/2016) REPORT ELECTRONICALLY SIGNED BY: Aniceto Hogue M.D. DATE/TIME: 10/19/2016 17:17 * * * * * * * * GROSS PATHOLOGY: Received in formalin labeled "White, Red-gallbladder with contents," is a 12.4 x 2.8 x 2.5 cm, intact gallbladder with pink-wilder, diffusely hemorrhagic, and wrinkled serosal surfaces. Opening the gallbladder reveals pink-wilder, granular, and trabeculated mucosa and an average wall thickness of 0.2 cm. Multiple yellow-green and multifaceted calculi ranging from 0.5-1.3 cm in greatest dimension are present and no masses are noted grossly. Wood Gluer sections from the body and fundus are submitted along with the proximal margin in cassette A1. (TTL; 10/18/2016) INITIAL CPT CODE(S): A; 81567 Professional services performed [place] [address] Technical services performed by [facility] at [address] [place] [address], [facility] [address], [place] [address]. SPECIMEN(S) RECEIVED: A.Gallbladder and contents CLINICAL HISTORY: Cholecystitis without biliary obstruction, gall stones PATIENT: RED GÓMEZ /AGE: 5 1990 (Age: 26) PATIENT #: [id number] ALT CASE #: SPECIMEN COLLECTION DATE: 10/17/2016 SPECIMEN RECEIVED DATE: 10/18/2016 [facility] - [id number] [place] [address] - PHONE: [phone] * * * END OF REPORT * * *
== END 2016-10-18 12:20 | disposition home or self-care (01) ==
LOC: SURG 12:55 → 4 NORTH 17:20
PROVIDERS: ADMIT Surgery; ATTEND Surgery
DX: K80.10 Calculus of gallbladder with chronic cholecystitis without obstruction (principal); E11.9 Type 2 diabetes mellitus without complications; R11.10 Vomiting, unspecified; E66.9 Obesity, unspecified; Z68.30 Body mass index [BMI] 30.0-30.9, adult; Z79.4 Long term (current) use of insulin
CPT/HCPCS: 36415; 47562; 74300; 80053; 81025; 82947; 88304; 96372; 96374; 96375; C1769; C1782; G0378; G0379; J0330; J0690; J1100; J1170; J1815; J2405; J2704; J2710; J3010; J3490; J7030; Q9967; J7120

== ENCOUNTER 2016-12-22 23:23 | Emergency (ER) | payer OTHER ==
[~2016-12-22] VITALS: Ht 180.3 cm; Wt 115.2 kg
[~2016-12-22 23:23] MED LIST changes: -CEFAZOLIN 2GM PREMIX 50 ML IV PRN; -EPHEDRINE SULFATE 50 MG/ML VIAL. ONE; -HYDROMORPHONE 2 MG/ML VIAL. IV PRN; -LIDOCAINE 1% 1 ML SYRINGE. ID PRN; -LIDOCAINE 2% 100 MG/5 ML DISP.SYRIN. ONE; -MORPHINE SULFATE 2 MG/ML DISP.SYRIN. IV PRN; -ONDANSETRON PF 4 MG/2 ML VIAL. IV PRN; -PROCHLORPERAZINE 10 MG/2 ML VIAL. IV PRN; -PROPOFOL 20 ML IV ONE; -ROCURONIUM 100 MG/10 ML VIAL. ONE; -SUCCINYLCHOLINE 200 MG/10 ML VIAL. ONE
[2016-12-23] VITALS: BP 166/90
[2016-12-23] MEDS ORDERED: LIDOCAINE 1% / SOD BICARB 8.4% 20 ML VIAL. IJ ONE (01:00)
[2016-12-23] MEDS ORDERED: SULF1TAB24 PO (02:10)
--- NOTE | 2016-12-23 02:10 | PHYS DOC ---
Past Medical History Past Medical History: Depression, Diabetes-Type II, Other Additional Past Medical Histor: abscess, chronic back pain Past Surgical History: Cholecystectomy Alcohol Use: None Drug Use: None Adult General Chief Complaint Chief Complaint: MULTIPLE COMPLAINTS HPI HPI This is a 26-year-old female presents with a abscess to her right hip that has been present for the last 1-2 days. She just found to have an elevated blood sugar in the 300 range upon arrival. She states she has been having difficulty controlling her blood sugar for the last several weeks. She denies any nausea or vomiting. She denies any fever or chills. Patient is completely nontoxic in appearance. Review of Systems Review of Systems Constitutional: Denies fever or chills [] Eyes: Denies change in visual acuity, redness, or eye pain [] HENT: Denies nasal congestion or sore throat [] Respiratory: Denies cough or shortness of breath [] Cardiovascular: No additional information not addressed in HPI [] GI: Denies abdominal pain, nausea, vomiting, bloody stools or diarrhea [] : Denies dysuria or hematuria [] Musculoskeletal: Denies back pain or joint pain [] Integument: Denies rash or skin lesions [] Neurologic: Denies headache, focal weakness or sensory changes [] Endocrine: Denies polyuria or polydipsia [] Current Medications Current Medications Current Medications Medications (Trade) Dose Ordered Sig/Brian Start Time Stop Time Status Last Admin Dose Admin Lidocaine/Sodium Bicarbonate (Buffered Lidocaine 1%) 20 ml 1X ONCE 12/23/16 01:00 12/23/16 01:06 DC 12/23/16 01:00 20 ML Allergies Allergies Allergies Coded Allergies Type Severity Reaction Last Updated Verified ibuprofen Allergy Intermediate 10/20/16 Yes naproxen Allergy Intermediate 10/20/16 Yes Physical Exam Physical Exam Constitutional: Well developed, well nourished, no acute distress, non-toxic appearance. [] HENT: Normocephalic, atraumatic, bilateral external ears normal, oropharynx moist, no oral exudates, nose normal. [] Eyes: PERRLA, EOMI, conjunctiva normal, no discharge. [] Neck: Normal range of motion, no tenderness, supple, no stridor. [] Cardiovascular:Heart rate regular rhythm, no murmur [] Lungs & Thorax: Bilateral breath sounds clear to auscultation [] Abdomen: Bowel sounds normal, soft, no tenderness, no masses, no pulsatile masses. [] Skin: Warm, dry, area of fluctuance and erythema approximately 2x3 cm c/w with abscess formation, no rash. [] Back: No tenderness, no CVA tenderness. [] Extremities: No tenderness, no cyanosis, no clubbing, ROM intact, no edema. [] Neurologic: Alert and oriented X 3, normal motor function, normal sensory function, no focal deficits noted. [] Psychologic: Affect normal, judgement normal, mood normal. [] Current Patient Data Vital Signs Vital Signs Date Time Temp Pulse Resp B/P Pulse Ox O2 Delivery O2 Flow Rate FiO2 12/23/16 00:00 98.1 90 18 166/90 97 Room Air 98.1 Lab Values Laboratory Tests Test 12/22/16 23:32 12/23/16 00:15 12/23/16 01:29 POC Urine HCG, Qualitative Hcg negative (Negative) Glucose (Fingerstick) 355mg/dL (70-99) H 329mg/dL (70-99) H EKG EKG [] Radiology/Procedures Radiology/Procedures [] Course & Med Decision Making Course & Med Decision Making Pertinent Labs and Imaging studies reviewed. (See chart for details) 26-year-old female who presents with an uncomplicated abscess to her right hip who had an incision and drainage in the department with moderate amount of serosanguineous fluid expressed. The wound site was then dressed appropriately and she was sent home to have the wound evaluated during the next several days by her primary care doctor. I also prescribed her a course of Bactrim therapy due to the fact that she is a diabetic and has uncontrolled blood glucose levels. Her blood glucose was taken multiple times while in the department and trended down without any intervention. There is no indication to perform any laboratory workup or do any other testing at this time. She was discharged without incident. Dragon Disclaimer Dragon Disclaimer This electronic medical record was generated, in whole or in part, using a voice recognition dictation system. Incision and Drainage Indication: abscess Procedure: The patient was positioned appropriately. Local anesthesia was 1% lidocaine. An incision was then made over the apex of the lesion using an 11 blade scalpel and a moderate amount of serosanguinous material was expressed. The drainage cavity was irrigated. A dressing was applied. The patient tolerated the procedure well. Complications: none. Departure Departure Impression: Primary Impression: Abscess Additional Impression: Hyperglycemia Disposition: 01 HOME, SELF-CARE Admitting Physician: Other Condition: STABLE Referrals: OLI MCFADDEN (PCP) Patient Instructions: Abscess, [id number], Hyperglycemia, [id number] Additional Instructions: Please take your antibiotic as prescribed and follow up with your primary doctor in the next 2-3 days for your abscess. Return to the ER if you develop any worsening pain or redness or nausea/vomiting. Scripts Sulfamethoxazole/Trimethoprim (Bactrim Ds Tablet)1 Each Tablet1 Tab PO BID #20 TAB Prov:DINOICIO OQUENDO DO 12/23/16 Problem Qualifiers DIONICIO OQUENDO DO Dec 23, 2016 02:10
== END 2016-12-23 02:21 | disposition home or self-care (01) ==
LOC: ER 23:23
DX: L02.415 Cutaneous abscess of right lower limb (principal); E11.649 Type 2 diabetes mellitus with hypoglycemia without coma; G89.29 Other chronic pain; Z90.49 Acquired absence of other specified parts of digestive tract; Z88.6 Allergy status to analgesic agent; Z88.8 Allergy status to other drugs, medicaments and biological substances
CPT/HCPCS: 10060; 81025; 82947; 99283; 99284-25

== ENCOUNTER 2017-03-28 10:10 | Emergency (ER) | payer OTHER ==
[~2017-03-28] VITALS: Ht 180.3 cm; Wt 104.3 kg
[~2017-03-28 10:10] MED LIST changes: +SULF1TAB24 PO
[2017-03-28 10:18] VITALS: BP 146/80
[2017-03-28 10:44] LABS: NEGATIVE OBC STREP NEG; POSITIVE OBC STREP POS
[2017-03-28] MEDS ORDERED: HYDROcodone/CHLORPHEN POLIS 5 ML SUS.ER.12H PO STA (11:21)
[2017-03-28] MEDS ORDERED: PRED50TA PO (11:34)
[2017-03-28] MEDS ORDERED: BENZ100C PO (11:34)
[2017-03-28] MEDS ORDERED: PROM118S2 PO (11:34)
[2017-03-28] MEDS ORDERED: AMOX875T PO (11:34)
[2017-03-28] MEDS ORDERED: PROAIR RESPICL90 MCG IH (11:34)
--- NOTE | 2017-03-28 11:35 | PHYS DOC ---
Past Medical History Past Medical History: Depression, Diabetes-Type II, Other Additional Past Medical Histor: abscess, chronic back pain Past Surgical History: Cholecystectomy Alcohol Use: None Drug Use: None Adult General Chief Complaint Chief Complaint: SORE THROAT HPI HPI Patient is a 27 year old female with history of diabetes type 2 and depression who presents today with a productive cough, bilateral ear pain, sore throat, and a mild frontal migraine headache for the last 4 days intermittently. Patient denies any fever. Patient has history of smoking. Review of Systems Review of Systems Constitutional: Denies fever or chills [] Eyes: Denies change in visual acuity, redness, or eye pain [] HENT: Bilateral ear pain, sore throat [] Respiratory: cough Cardiovascular: No additional information not addressed in HPI [] GI: Denies abdominal pain, nausea, vomiting, bloody stools or diarrhea [] : Denies dysuria or hematuria [] Musculoskeletal: Denies back pain or joint pain [] Integument: Denies rash or skin lesions [] Neurologic: Denies headache, focal weakness or sensory changes [] Endocrine: Denies polyuria or polydipsia [] Current Medications Current Medications Current Medications Medications (Trade) Dose Ordered Sig/Brian Start Time Stop Time Status Last Admin Dose Admin Chlorphenir/ Hydrocodone Polistirex (Tussionex) 5 ml 1X STAT 03/28/17 11:21 03/28/17 11:22 UNV Allergies Allergies Allergies Coded Allergies Type Severity Reaction Last Updated Verified ibuprofen Allergy Intermediate 10/20/16 Yes naproxen Allergy Intermediate 10/20/16 Yes Physical Exam Physical Exam Constitutional: Well developed, well nourished, no acute distress, non-toxic appearance. [] HENT: Normocephalic, atraumatic, bilateral external ears normal, oropharynx moist, no oral exudates, nose normal. [] posterior pharynx with mild erythema. Bilateral TM are mildly injected. Eyes: PERRLA, EOMI, conjunctiva normal, no discharge. [] Neck: Normal range of motion, no tenderness, supple, no stridor. [] Cardiovascular:Heart rate regular rhythm, no murmur [] Lungs & Thorax: Bilateral breath sounds clear to auscultation [] Abdomen: Bowel sounds normal, soft, no tenderness, no masses, no pulsatile masses. [] Skin: Warm, dry, no erythema, no rash. [] Back: No tenderness, no CVA tenderness. [] Extremities: No tenderness, no cyanosis, no clubbing, ROM intact, no edema. [] Neurologic: Alert and oriented X 3, normal motor function, normal sensory function, no focal deficits noted. [] Psychologic: Affect normal, judgement normal, mood normal. [] Current Patient Data Vital Signs Vital Signs Date Time Temp Pulse Resp B/P (MAP) Pulse Ox O2 Delivery O2 Flow Rate FiO2 03/28/17 10:18 98.2 98 22 93 Room Air 98.2 Lab Values Laboratory Tests Test 03/28/17 10:34 Group A Streptococcus Rapid Positive (NEGATIVE) EKG EKG [] Radiology/Procedures Radiology/Procedures [] Course & Med Decision Making Course & Med Decision Making Pertinent Labs and Imaging studies reviewed. (See chart for details) Patient is in the ED with multiple complaints including bilateral ear pain, coughing sore throat and a headache. Positive rapid strep. Discharged with amoxicillin. She is a smoker. She was encouraged to consider smoking cessation. She was discharged with albuterol inhaler Tessalon Perles prednisone and lidocaine viscous and codeine with promethazine for her cough. She was instructed to follow-up with her PCP in one week. Provided return precautions and discharged in stable condition. Dragon Disclaimer Dragon Disclaimer This electronic medical record was generated, in whole or in part, using a voice recognition dictation system. Departure Departure Impression: Primary Impression: Streptococcal pharyngitis Additional Impressions: Acute bronchitis Smoking addiction Migraine headache Disposition: 01 HOME, SELF-CARE Condition: STABLE Referrals: NO PCP (PCP) follow up with your doctor in one week Patient Instructions: Acute Bronchitis, Smoking Cessation, Strep Throat Additional Instructions: You were awake a seen for acute streptococcal pharyngitis, bronchitis, a headache.. Follow-up with your own doctor in the next 1 week. Consider smoking cessation. Scripts Promethazine Hcl/Codeine (PROMETHAZINE-CODEINE SYRUP) 118 Ml Syrup 5 ML PO Q4-6HRS, #50 ML MUST FILL AMOXICILLIN PRIOR TO COUGH SYRUP Prov: JUANJOSE GUEVARA NATURALIZATION EXAMINER 03/28/17 Amoxicillin (AMOXICILLIN) 875 Mg Tablet 1 TAB PO BID, #20 TAB Prov: PEREZUNGAJUANJOSE NATURALIZATION EXAMINER 03/28/17 Albuterol Sulfate (Proair Respiclick) 90 Mcg Aer.pow.ba 1 PUFF IH PRN Q6HRS Y for SHORTNESS OF BREATH, #1 INHALER Prov: JUANJOSE GUEVARA APRN 03/28/17 Benzonatate (TESSALON PERLE) 100 Mg Capsule 1 CAP PO TID, #30 CAP Prov: JUANJOSE GUEVARA APRN 03/28/17 Prednisone (PREDNISONE) 50 Mg Tablet 1 TAB PO DAILY, #5 TAB Prov: JUANJOSE GUEVARA APRN 03/28/17 Problem Qualifiers Additional Impressions: Acute bronchitis Bronchitis organism: unspecified organism Qualified Codes: J20.9 - Acute bronchitis, unspecified Migraine headache Migraine type: without aura Status migrainosus presence: without status migrainosus Intractability: not intractable Qualified Codes: G43.009 - Migraine without aura, not intractable, without status migrainosus JUANJOSE GUEVARA APRN Mar 28, 2017 11:34
[2017-03-28] MEDS ORDERED: LIDOCAINE 2% VISCOUS 15 ML SOLUTION. SWSW ONE (11:45)
== END 2017-03-28 11:53 | disposition home or self-care (01) ==
LOC: ER 10:10
DX: J02.0 Streptococcal pharyngitis (principal); J20.9 Acute bronchitis, unspecified; F17.200 Nicotine dependence, unspecified, uncomplicated; G43.909 Migraine, unspecified, not intractable, without status migrainosus; H92.03 Otalgia, bilateral; F32.9 Major depressive disorder, single episode, unspecified; E11.9 Type 2 diabetes mellitus without complications; G89.29 Other chronic pain; Z90.49 Acquired absence of other specified parts of digestive tract; Z88.6 Allergy status to analgesic agent; Z88.8 Allergy status to other drugs, medicaments and biological substances
CPT/HCPCS: 87880; 99283

== ENCOUNTER 2017-05-20 17:11 | Emergency (ER) | payer OTHER ==
[~2017-05-20] VITALS: Ht 180.3 cm; Wt 107.0 kg
[~2017-05-20 17:11] MED LIST changes: +AMOX875T PO; +BENZ100C PO; +PRED50TA PO; +PROAIR RESPICL90 MCG IH; +PROM118S2 PO
[2017-05-20 18:07] LABS: BILIRUBIN,URINE NEGATIVE (NEG); GLUCOSE,URINE >=1000 mg/dL (NEG); NITRITE,URINE NEGATIVE (NEG); PH,URINE 5.5; PROTEIN,URINE NEGATIVE (NEG-TRACE); UROBILINOGEN,URINE 0.2 mg/dL (0.2 mg/dL)
[2017-05-20 18:15] LABS: NEG OBC UR NEG; POS OBC UR POS
[2017-05-20 18:28] LABS: BACTERIA,URINE MOD /HPF (0-FEW); RBC,URINE 0 /HPF (0-2); SQUAMOUS EPITHELIAL CELL,UR MOD /LPF; YEAST,URINE PRESENT /HPF
[2017-05-20] MEDS ORDERED: DIPHTH,PERTUSS(ACELL),TET TOX 0.5 ML DISP.SYRIN. VAX IM ONE (18:30)
[2017-05-20] MEDS ORDERED: IV NORMAL SALINE 1000ML BAG 1,000 ML IV ONE ×2 (18:30→19:45)
--- NOTE | 2017-05-20 18:47 | PHYS DOC ---
Past Medical History Past Medical History: Diabetes-Type II Additional Past Medical Histor: abscess, chronic back pain Past Surgical History: Cholecystectomy Alcohol Use: None Drug Use: None Adult General Chief Complaint Chief Complaint: PAIN ON URINATION HPI HPI Patient is a 27 year old female with history of diabetes type 2 who presents today with multiple complaints. Patient states she's had vaginal discharge for 2 days. She also states she has right lower extremity wound for 2 days. She also states her blood sugars have been running in the 400s. She states she uses Januvia. She states she does not follow up with her PCP because she feels the PCP is not helping her. She states she has told the PCP she wants to be put on insulin but the PCP has refused. She currently states she does not have a PCP. Patient denies any chance she is . Denies any concerns for STDs. Denies any abdominal pain nausea or vomiting. PCP Dr. Funes Review of Systems Review of Systems Constitutional: Denies fever or chills [] Eyes: Denies change in visual acuity, redness, or eye pain [] HENT: Denies nasal congestion or sore throat [] Respiratory: Denies cough or shortness of breath [] Cardiovascular: No additional information not addressed in HPI [] GI: Denies abdominal pain, nausea, vomiting, bloody stools or diarrhea [] : vag discharge Musculoskeletal: Denies back pain or joint pain [] Integument: wound the right LE Neurologic: Denies headache, focal weakness or sensory changes [] Endocrine: high blood glucose Current Medications Current Medications Current Medications Medications (Trade) Dose Ordered Sig/Brian Start Time Stop Time Status Last Admin Dose Admin Clindamycin Phosphate 50 ml @ 100 mls/hr 1X ONCE 05/20/17 19:45 05/20/17 20:14 DC Diphtheria/ Tetanus/Acell Pertussis (Boostrix) 0.5 ml ONCE ONCE 05/20/17 18:30 05/20/17 18:31 DC Fluconazole (Diflucan) 150 mg 1X ONCE 05/20/17 19:45 05/20/17 19:46 DC Insulin Human Regular (NovoLIN R VIAL) 5 unit 1X ONCE 05/20/17 19:45 05/20/17 19:46 DC Sodium Chloride 1,000 ml @ 1,000 mls/hr 1X ONCE 05/20/17 19:45 05/20/17 20:18 DC Allergies Allergies Allergies Coded Allergies Type Severity Reaction Last Updated Verified ibuprofen Allergy Intermediate 10/20/16 Yes naproxen Allergy Intermediate 10/20/16 Yes Physical Exam Physical Exam Constitutional: Well developed, well nourished, no acute distress, non-toxic appearance. [] HENT: Normocephalic, atraumatic, bilateral external ears normal, oropharynx moist, no oral exudates, nose normal. [] Eyes: PERRLA, EOMI, conjunctiva normal, no discharge. [] Neck: Normal range of motion, no tenderness, supple, no stridor. [] Cardiovascular:Heart rate regular rhythm, no murmur [] Lungs & Thorax: Bilateral breath sounds clear to auscultation [] Abdomen: Bowel sounds normal, soft, no tenderness, no masses, no pulsatile masses. [] Pelvic exam External pelvic is red and macerated consistent with yeast infection Cervix not visualized due to patient's body habitus, no CMT, no adnexal tenderness, plus amount of discharge in the vaginal vault white in color. Skin: Right proximal sheen with an area of cellulitis approximately 2 x 2 centimeters Back: No tenderness, no CVA tenderness. [] Extremities: No tenderness, no cyanosis, no clubbing, ROM intact, no edema. [] Neurologic: Alert and oriented X 3, normal motor function, normal sensory function, no focal deficits noted. [] Psychologic: Affect normal, judgement normal, mood normal. [] Current Patient Data Vital Signs Vital Signs Date Time Temp Pulse Resp B/P (MAP) Pulse Ox O2 Delivery O2 Flow Rate FiO2 05/20/17 19:03 95 17 140/71 (94) 97 Room Air 05/20/17 17:32 98.2 98.2 Lab Values Laboratory Tests Test 05/20/17 17:48 05/20/17 17:50 05/20/17 19:03 Glucose (Fingerstick) 350 mg/dL (70-99) H Urine Collection Type Unknown Urine Color Yellow Urine Clarity Clear Urine pH 5.5 Urine Specific [place] >=1.030 Urine Protein Negative mg/dL (NEG-TRACE) Urine Glucose (UA) >=1000 mg/dL (NEG) Urine Ketones (Stick) Negative mg/dL (NEG) Urine Blood Negative (NEG) Urine Nitrite Negative (NEG) Urine Bilirubin Negative (NEG) Urine Urobilinogen Dipstick 0.2 mg/dL (0.2 mg/dL) Urine Leukocyte Esterase Negative (NEG) Urine RBC 0 /HPF (0-2) Urine WBC 5-10 /HPF (0-4) Urine Squamous Epithelial Cells Mod /LPF Urine Bacteria Mod /HPF (0-FEW) Urine Yeast Present /HPF Urine Test Negative (NEG) White Blood Count 12.5 x10^3/uL (4.0-11.0) H Red Blood Count 4.89 x10^6/uL (3.50-5.40) Hemoglobin 15.2 g/dL (12.0-15.5) Hematocrit 43.5 % (36.0-47.0) Mean Corpuscular Volume 89 fL (79-100) Mean Corpuscular Hemoglobin 31 pg (25-35) Mean Corpuscular Hemoglobin Concent 35 g/dL (31-37) Red Cell Distribution Width 13.1 % (11.5-14.5) Platelet Count 248 x10^3/uL (140-400) Neutrophils (%) (Auto) 68 % (31-73) Lymphocytes (%) (Auto) 26 % (24-48) Monocytes (%) (Auto) 5 % (0-9) Eosinophils (%) (Auto) 1 % (0-3) Basophils (%) (Auto) 1 % (0-3) Neutrophils # (Auto) 8.5 x10^3uL (1.8-7.7) H Lymphocytes # (Auto) 3.2 x10^3/uL (1.0-4.8) Monocytes # (Auto) 0.6 x10^3/uL (0.0-1.1) Eosinophils # (Auto) 0.1 x10^3/uL (0.0-0.7) Basophils # (Auto) 0.1 x10^3/uL (0.0-0.2) Sodium Level 132 mmol/L (136-145) L Potassium Level 4.0 mmol/L (3.5-5.1) Chloride Level 95 mmol/L (98-107) L Carbon Dioxide Level 24 mmol/L (21-32) Anion Gap 13 (6-14) Blood Urea Nitrogen 5 mg/dL (7-20) L Creatinine 0.7 mg/dL (0.6-1.0) Estimated GFR (Cockcroft-Gault) 98.9 Glucose Level 338 mg/dL (70-99) H Calcium Level 9.3 mg/dL (8.5-10.1) Laboratory Tests 05/20/17 19:03 Laboratory Tests 05/20/17 19:03 Microbiology 05/20/17 Wet Prep - Final, Complete EKG EKG [] Radiology/Procedures Radiology/Procedures [] Course & Med Decision Making Course & Med Decision Making Pertinent Labs and Imaging studies reviewed. (See chart for details) This is a diabetic type II patient who presents to the ED today complaining of hyperglycemia with blood glucose in the 400s, right lower extremity wound, and vaginal discharge with concern for yeast infection. Fingerstick on arrival to the ED was 350. Right lower extremity has a small area of cellulitis approximately 2 x 2 centimeters. Patient was given tetanus. Patient's tetanus was updated. Urine analysis is positive for yeast infection- will be discharged with fluconazole,and nystatin cream Wet prep positive for BV- will be discharged with Flagyl Patient signed out AMA per nursing staff. Dragon Disclaimer Dragon Disclaimer This electronic medical record was generated, in whole or in part, using a voice recognition dictation system. Departure Departure Impression: Primary Impression: Hyperglycemia Additional Impressions: Cellulitis of leg, right Bacterial vaginosis Vaginal candidiasis Disposition: 07 AGAINST MEDICAL ADVICE Condition: STABLE Referrals: NO PCP (PCP) Problem Qualifiers JUANJOSE GUEVARA APRN May 20, 2017 18:47
[2017-05-20 19:03] VITALS: BP 140/71
[2017-05-20 19:14] LABS: BASO # 0.1 x10^3/uL (0.0-0.2); BASO % 1 % (0-3); EOS % 1 % (0-3); HEMATOCRIT 43.5 % (36.0-47.0); HEMOGLOBIN 15.2 g/dL (12.0-15.5); LYMPH # 3.2 x10^3/uL (1.0-4.8); LYMPH % 26 % (24-48); MEAN CORPUSCULAR HEMOGLOBIN 31 pg (25-35); MEAN CORPUSCULAR HGB CONC 35 g/dL (31-37); MEAN CORPUSCULAR VOLUME 89 fL (79-100); MONO % 5 % (0-9); NEUT % 68 % (31-73); PLATELET COUNT 248 x10^3/uL (140-400); RED BLOOD COUNT 4.89 x10^6/uL (3.50-5.40); RED CELL DISTRIBUTION WIDTH 13.1 % (11.5-14.5); WHITE BLOOD COUNT 12.5 x10^3/uL (4.0-11.0)
[2017-05-20 19:21] LABS: CALCIUM 9.3 mg/dL (8.5-10.1); CREATININE 0.7 mg/dL (0.6-1.0); GFR 98.9
[2017-05-20] MEDS ORDERED: FLUCONAZOLE 100 MG TABLET. PO ONE (19:45)
[2017-05-20] MEDS ORDERED: CLINDAMYCIN 900MG PREMIX 50 ML IV ONE (19:45)
[2017-05-20] MEDS ORDERED: INSULIN REGULAR 100 UNIT/ML 10ML VIAL. IV ONE (19:45)
== END 2017-05-20 20:01 | disposition home or self-care (01) ==
LOC: ER 17:11
DX: E11.65 Type 2 diabetes mellitus with hyperglycemia (principal); N76.0 Acute vaginitis; B96.89 Other specified bacterial agents as the cause of diseases classified elsewhere; B37.3 Candidiasis of vulva and vagina; L03.115 Cellulitis of right lower limb; G89.29 Other chronic pain; Z90.49 Acquired absence of other specified parts of digestive tract; Z88.6 Allergy status to analgesic agent; Z88.8 Allergy status to other drugs, medicaments and biological substances
CPT/HCPCS: 36415; 80048; 81001; 81025; 82962; 85025; 87491; 87591; 96360; 99284; J7030; Q0111

== ENCOUNTER 2017-10-20 10:07 | Emergency (ER) | payer OTHER | END 2017-10-20 11:37 | disposition home or self-care (01) | LOC: ER 10:07 | DX: L25.9 Unspecified contact dermatitis, unspecified cause (principal); E11.9 Type 2 diabetes mellitus without complications; G89.29 Other chronic pain; F17.210 Nicotine dependence, cigarettes, uncomplicated; Z88.6 Allergy status to analgesic agent | CPT/HCPCS: 99283 ==

== ENCOUNTER 2018-04-23 03:43 | Emergency (ER) | payer OTHER ==
[2018-04-23] MEDS: FLUCONAZOLE 100 MG TABLET. PO (05:26)
[2018-04-23] MEDS: ACYCLOVIR 200 MG CAPSULE. PO (05:27)
[2018-04-23] MEDS: traMADol 50 MG TABLET PO (05:27)
== END 2018-04-23 05:30 | disposition home or self-care (01) ==
LOC: ER 03:43
DX: B02.8 Zoster with other complications (principal); E11.9 Type 2 diabetes mellitus without complications; G89.29 Other chronic pain; Z88.5 Allergy status to narcotic agent; Z90.49 Acquired absence of other specified parts of digestive tract; Z88.8 Allergy status to other drugs, medicaments and biological substances
CPT/HCPCS: 99284

== ENCOUNTER 2018-07-10 19:14 | Emergency (ER) | payer OTHER ==
[~2018-07-10] VITALS: Ht 180.3 cm; Wt 90.7 kg
[~2018-07-10 19:14] MED LIST changes: +ACYC800T PO; +METH4TAB2 PO; +METR500T PO; -PROM118S2 PO; +PROM118S5 PO; +TRAM50TA PO
[2018-07-10 19:32] VITALS: BP 145/77
[2018-07-10] MEDS ORDERED: ORPHENADRINE CITRATE 60 MG/2 ML VIAL. IM ONE (20:45)
[2018-07-10] MEDS ORDERED: KETOROLAC 60 MG/2 ML INJ. IM ONE (20:45)
[2018-07-10] MEDS ORDERED: ORPH100T PO (21:33)
[2018-07-10] MEDS ORDERED: TRAM50TA PO (21:33)
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
== END 2018-07-10 21:42 | disposition home or self-care (01) ==
LOC: ER 19:14
DX: S16.1XXA Strain of muscle, fascia and tendon at neck level, initial encounter (principal); S50.12XA Contusion of left forearm, initial encounter; H57.11 Ocular pain, right eye; M25.512 Pain in left shoulder; M54.6 Pain in thoracic spine; E11.9 Type 2 diabetes mellitus without complications; G89.29 Other chronic pain; Z90.49 Acquired absence of other specified parts of digestive tract; Z88.8 Allergy status to other drugs, medicaments and biological substances; Z88.6 Allergy status to analgesic agent; V43.52XA Car driver injured in collision with other type car in traffic accident, initial encounter; Y93.89 Activity, other specified; Y92.410 Unspecified street and highway as the place of occurrence of the external cause; Y99.8 Other external cause status
CPT/HCPCS: 73090; 81025; 96372; 99284; J1885; J2360

== ENCOUNTER 2018-08-20 01:58 | Emergency (ER) | payer OTHER ==
[~2018-08-20] VITALS: Ht 180.3 cm; Wt 90.7 kg
[~2018-08-20 01:58] MED LIST changes: +HYDR-3164 PO; -HYDR-971 PO; +ORPH100T PO
[2018-08-20 02:00] VITALS: BP 160/94
[2018-08-20 02:29] LABS: BILIRUBIN,URINE NEGATIVE (NEG); CLARITY,URINE CLEAR; COLOR,URINE YELLOW; NITRITE,URINE NEGATIVE (NEG); PH,URINE 5.5; PROTEIN,URINE 100 mg/dL (NEG-TRACE); UROBILINOGEN,URINE 0.2 mg/dL (0.2 mg/dL)
[2018-08-20 02:40] LABS: BACTERIA,URINE MODERATE /HPF (0-FEW); RBC,URINE OCC /HPF (0-2); SQUAMOUS EPITHELIAL CELL,UR MANY /LPF; YEAST,URINE PRESENT /HPF
[2018-08-20] MEDS ORDERED: HYDR-3164 PO (02:42)
[2018-08-20] MEDS ORDERED: ACYC800T PO (02:42)
[2018-08-20] MEDS ORDERED: HYDROcodone/APAP 5/325MG 1 TAB TABLET PO ONE (02:45)
[2018-08-20] MEDS ORDERED: cefTRIAXone IM 250 MG VIAL IM ONE (03:15)
[2018-08-20] MEDS ORDERED: ACYCLOVIR 200 MG CAPSULE. PO ONE (03:15)
[2018-08-20] MEDS ORDERED: FLUCONAZOLE 100 MG TABLET. PO ONE (03:15)
[2018-08-20] MEDS ORDERED: AZITHROMYCIN 250 MG TABLET. PO ONE (03:15)
--- NOTE | 2018-08-20 04:21 | PHYS DOC ---
Past Medical History Past Medical History: Diabetes-Type II Additional Past Medical Histor: abscess, chronic back pain Past Surgical History: Cholecystectomy, Other Additional Past Surgical Histo: teeth extraction Alcohol Use: None Drug Use: None Adult General Chief Complaint Chief Complaint: VAGINAL PROBLEM HPI HPI Patient is a 28 year old female presenting with lesions on the labia has run out of acyclovir. Also having vaginal discharge pain is moderate to severe worse with palpation no fever Review of Systems Review of Systems Constitutional: Denies fever or chills [] Eyes: Denies change in visual acuity, redness, or eye pain [] HENT: Denies nasal congestion or sore throat [] Respiratory: Denies cough or shortness of breath [] Cardiovascular: No additional information not addressed in HPI [] Neurologic: Denies headache, focal weakness or sensory changes [] Endocrine: Denies polyuria or polydipsia [] All other systems were reviewed and found to be within normal limits, except as documented in this note. Current Medications Current Medications Current Medications Medications (Trade) Dose Ordered Sig/Brian Start Time Stop Time Status Last Admin Dose Admin Acetaminophen/ Hydrocodone Bitart (Lortab 5/325) 2 tab 1X ONCE 08/20/18 02:45 08/20/18 02:46 DC 08/20/18 02:44 2 TAB Acyclovir (Zovirax) 800 mg 1X ONCE 08/20/18 03:15 08/20/18 03:16 DC 08/20/18 03:33 800 MG Azithromycin (Zithromax) 1,000 mg 1X ONCE 08/20/18 03:15 08/20/18 03:16 DC 08/20/18 03:33 1,000 MG Ceftriaxone Sodium (Rocephin Im) 250 mg 1X ONCE 08/20/18 03:15 08/20/18 03:16 DC 08/20/18 03:35 250 MG Fluconazole (Diflucan) 150 mg 1X ONCE 08/20/18 03:15 08/20/18 03:16 DC 08/20/18 03:32 150 MG Allergies Allergies Allergies Coded Allergies Type Severity Reaction Last Updated Verified ibuprofen Allergy Intermediate 10/20/16 Yes naproxen Allergy Intermediate 10/20/16 Yes Physical Exam Physical Exam Constitutional: Well developed, well nourished, no acute distress, non-toxic appearance. [] HENT: Normocephalic, atraumatic, bilateral external ears normal, oropharynx moist, no oral exudates, nose normal. [] Eyes: PERRLA, EOMI, conjunctiva normal, no discharge. [] Neck: Normal range of motion, no tenderness, supple, no stridor. [] Pulmonary: Normal respiratory effort no increased work of breathing no obvious chest wall trauma Abdomen: Bowel sounds normal, soft, no tenderness, no masses, no pulsatile masses. [] Skin: There are multiple vesicular-appearing lesions over the external labia. exam was limited due to the patient's current ability to cooperate due to her pain but there was moderate vaginal discharge noted. Back: No tenderness, no CVA tenderness. [] Extremities: No tenderness, no cyanosis, no clubbing, ROM intact, no edema. [] Neurologic: Alert and oriented X 3, normal motor function, normal sensory function, no focal deficits noted. [] Psychologic: Affect normal, judgement normal, mood normal. [] Current Patient Data Vital Signs Vital Signs Date Time Temp Pulse Resp B/P (MAP) Pulse Ox O2 Delivery O2 Flow Rate FiO2 08/20/18 02:44 18 98 Room Air 08/20/18 02:00 98.2 114 160/94 (116) 98.2 Lab Values Laboratory Tests Test 08/20/18 02:07 08/20/18 02:21 Urine Collection Type Unknown Urine Color Yellow Urine Clarity Clear Urine pH 5.5 Urine Specific [place] >=1.030 Urine Protein 100 mg/dL (NEG-TRACE) Urine Glucose (UA) >=1000 mg/dL (NEG) Urine Ketones (Stick) Negative mg/dL (NEG) Urine Blood Trace (NEG) Urine Nitrite Negative (NEG) Urine Bilirubin Negative (NEG) Urine Urobilinogen Dipstick 0.2 mg/dL (0.2 mg/dL) Urine Leukocyte Esterase Negative (NEG) Urine RBC Occ /HPF (0-2) Urine WBC 11-20 /HPF (0-4) Urine Squamous Epithelial Cells Many /LPF Urine Bacteria Moderate /HPF (0-FEW) Urine Yeast Present /HPF POC Urine HCG, Qualitative Hcg negative (Negative) Microbiology 08/20/18 Wet Prep - Final, Complete EKG EKG [] Radiology/Procedures Radiology/Procedures [] Course & Med Decision Making Course & Med Decision Making Pertinent Labs and Imaging studies reviewed. (See chart for details) []wet prep shows yeast, fluc given noted herpetic lesions, acyclovir given. also gave presumptive std tx and pain control as pt was having moderate to severe pain with palpation Justine Disclaimer Justine Disclaimer This electronic medical record was generated, in whole or in part, using a voice recognition dictation system. Departure Departure Impression: Primary Impression: Herpes Disposition: HOME, SELF-CARE Condition: STABLE Patient Instructions: Herpes Labialis Scripts Acyclovir (ACYCLOVIR) 800 Mg Tablet 1 TAB PO 5XDAY, #50 TAB Prov: JUSTEN FENTON MD 08/20/18 Hydrocodone/Apap 5-325 (NORCO 5-325 TABLET) 1 Each Tablet 1-2 EACH PO PRN Q6HRS PRN for PAIN, #15 as needed for pain Prov: JUSTEN FENTON MD 08/20/18 JUSTEN FENTON MD Aug 20, 2018 04:21
== END 2018-08-20 03:45 | disposition home or self-care (01) ==
LOC: ER 01:58
DX: B00.1 Herpesviral vesicular dermatitis (principal); E11.9 Type 2 diabetes mellitus without complications; G89.29 Other chronic pain; Z88.5 Allergy status to narcotic agent; Z88.8 Allergy status to other drugs, medicaments and biological substances
CPT/HCPCS: 81001; 81025; 87491; 87591; 96372; 99284; J0696; Q0111; Q0144

== ENCOUNTER 2018-09-18 00:58 | Emergency (ER) | payer SELFPAY ==
[~2018-09-18] VITALS: Ht 180.3 cm; Wt 90.7 kg
[2018-09-18 01:00] VITALS: BP 143/75
[2018-09-18 01:29] LABS: BILIRUBIN,URINE NEGATIVE (NEG); CLARITY,URINE CLEAR; COLOR,URINE YELLOW; NITRITE,URINE NEGATIVE (NEG); PH,URINE 5.5; PROTEIN,URINE NEGATIVE (NEG-TRACE); UROBILINOGEN,URINE 0.2 mg/dL (0.2 mg/dL)
[2018-09-18 01:42] LABS: BACTERIA,URINE 0 /HPF (0-FEW); RBC,URINE 0 /HPF (0-2); SQUAMOUS EPITHELIAL CELL,UR MOD /LPF; WBC,URINE OCC /HPF (0-4); YEAST,URINE PRESENT /HPF
[2018-09-18] MEDS ORDERED: ACYCLOVIR 200 MG CAPSULE. PO ONE (01:45)
[2018-09-18] MEDS ORDERED: AZITHROMYCIN 250 MG TABLET. PO ONE (01:45)
[2018-09-18] MEDS ORDERED: cefTRIAXone IM 250 MG VIAL IM ONE (01:45)
[2018-09-18] MEDS ORDERED: ACYC800T PO (02:04)
--- NOTE | 2018-09-18 02:04 | PHYS DOC ---
Past Medical History Past Medical History: Diabetes-Type II Additional Past Medical Histor: abscess, chronic back pain, HERPES Past Surgical History: Cholecystectomy, Other Additional Past Surgical Histo: teeth extraction Alcohol Use: None Drug Use: None Adult General Chief Complaint Chief Complaint: VAGINAL PROBLEM HPI HPI Patient is a 28 year old [f__sex] who presents with [] Review of Systems Review of Systems Constitutional: Denies fever or chills [] Eyes: Denies change in visual acuity, redness, or eye pain [] HENT: Denies nasal congestion or sore throat [] Respiratory: Denies cough or shortness of breath [] Cardiovascular: No additional information not addressed in HPI [] GI: Denies abdominal pain, nausea, vomiting, bloody stools or diarrhea [] : Denies dysuria or hematuria [] Musculoskeletal: Denies back pain or joint pain [] Integument: Denies rash or skin lesions [] Neurologic: Denies headache, focal weakness or sensory changes [] Endocrine: Denies polyuria or polydipsia [] All other systems were reviewed and found to be within normal limits, except as documented in this note. Current Medications Current Medications Current Medications Medications (Trade) Dose Ordered Sig/Brian Start Time Stop Time Status Last Admin Dose Admin Acyclovir (Zovirax) 800 mg 1X ONCE 09/18/18 01:45 09/18/18 01:46 DC 09/18/18 01:51 800 MG Azithromycin (Zithromax) 1,000 mg 1X ONCE 09/18/18 01:45 09/18/18 01:46 DC 09/18/18 01:51 1,000 MG Ceftriaxone Sodium (Rocephin Im) 250 mg 1X ONCE 09/18/18 01:45 09/18/18 01:46 DC 09/18/18 01:51 250 MG Allergies Allergies Allergies Coded Allergies Type Severity Reaction Last Updated Verified ibuprofen Allergy Intermediate 10/20/16 Yes naproxen Allergy Intermediate 10/20/16 Yes Physical Exam Physical Exam Constitutional: Well developed, well nourished, no acute distress, non-toxic appearance. [] HENT: Normocephalic, atraumatic, bilateral external ears normal, oropharynx moist, no oral exudates, nose normal. [] Eyes: PERRLA, EOMI, conjunctiva normal, no discharge. [] Neck: Normal range of motion, no tenderness, supple, no stridor. [] Cardiovascular:Heart rate regular rhythm, no murmur [] Lungs & Thorax: Bilateral breath sounds clear to auscultation [] Abdomen: Bowel sounds normal, soft, no tenderness, no masses, no pulsatile masses. [] Skin: Warm, dry, no erythema, no rash. [] Back: No tenderness, no CVA tenderness. [] Extremities: No tenderness, no cyanosis, no clubbing, ROM intact, no edema. [] Neurologic: Alert and oriented X 3, normal motor function, normal sensory function, no focal deficits noted. [] Psychologic: Affect normal, judgement normal, mood normal. [] Current Patient Data Vital Signs Vital Signs Date Time Temp Pulse Resp B/P (MAP) Pulse Ox O2 Delivery O2 Flow Rate FiO2 09/18/18 01:00 98.1 106 16 143/75 (97) 96 Room Air 98.1 Lab Values Laboratory Tests Test 09/18/18 01:05 09/18/18 01:08 Urine Collection Type Unknown Urine Color Yellow Urine Clarity Clear Urine pH 5.5 Urine Specific [place] >=1.030 Urine Protein Negative mg/dL (NEG-TRACE) Urine Glucose (UA) >=1000 mg/dL (NEG) Urine Ketones (Stick) Negative mg/dL (NEG) Urine Blood Negative (NEG) Urine Nitrite Negative (NEG) Urine Bilirubin Negative (NEG) Urine Urobilinogen Dipstick 0.2 mg/dL (0.2 mg/dL) Urine Leukocyte Esterase Negative (NEG) Urine RBC 0 /HPF (0-2) Urine WBC Occ /HPF (0-4) Urine Squamous Epithelial Cells Mod /LPF Urine Bacteria 0 /HPF (0-FEW) Urine Yeast Present /HPF POC Urine HCG, Qualitative Hcg negative (Negative) Microbiology 09/18/18 Wet Prep - Final, Complete EKG EKG [] Radiology/Procedures Radiology/Procedures [] Course & Med Decision Making Course & Med Decision Making Pertinent Labs and Imaging studies reviewed. (See chart for details) [] Dragon Disclaimer Dragon Disclaimer This electronic medical record was generated, in whole or in part, using a voice recognition dictation system. Departure Departure Impression: Primary Impression: Herpes Additional Impression: Vaginal discharge Disposition: HOME, SELF-CARE Condition: STABLE Referrals: NO PCP (PCP) Patient Instructions: Genital Herpes, Sexually Transmitted Disease, Easy-to- Read Scripts Acyclovir (ACYCLOVIR) 800 Mg Tablet 1 TAB PO BID for 5 Days, #10 TAB Prov: MAINOR MAYA DO 09/18/18 Problem Qualifiers MAINOR MAYA DO Sep 18, 2018 02:04
[2018-09-19 13:23] LABS: GC PROBE Negative (Negative)
== END 2018-09-18 02:10 | disposition home or self-care (01) ==
LOC: ER 00:58
DX: N89.8 Other specified noninflammatory disorders of vagina (principal); B00.9 Herpesviral infection, unspecified; E11.9 Type 2 diabetes mellitus without complications; G89.29 Other chronic pain; Z90.49 Acquired absence of other specified parts of digestive tract; Z88.5 Allergy status to narcotic agent; Z88.6 Allergy status to analgesic agent
CPT/HCPCS: 81001; 81025; 87491; 87591; 96372; 99283; J0696; Q0111; Q0144

== ENCOUNTER 2018-10-29 13:38 | Emergency (ER) | payer MEDICAID, OTHER ==
[~2018-10-29] VITALS: Ht 180.3 cm; Wt 113.4 kg
[2018-10-29 14:03] VITALS: BP 155/83
[2018-10-29] MEDS ORDERED: ACYC800T PO (14:25)
[2018-10-29] MEDS ORDERED: FLUC150T PO (14:25)
--- NOTE | 2018-10-29 14:26 | PHYS DOC ---
Past Medical History Past Medical History: Diabetes-Type II Additional Past Medical Histor: abscess, chronic back pain, HERPES Past Surgical History: Cholecystectomy, Other Additional Past Surgical Histo: teeth extraction Alcohol Use: None Drug Use: None Adult General Chief Complaint Chief Complaint: MEDICATION REFILL [facility] Patient is a 28 year old [f__sex] who presents with [] Review of Systems Review of Systems Constitutional: Denies fever or chills [] Eyes: Denies change in visual acuity, redness, or eye pain [] HENT: Denies nasal congestion or sore throat [] Respiratory: Denies cough or shortness of breath [] Cardiovascular: No additional information not addressed in HPI [] GI: Denies abdominal pain, nausea, vomiting, bloody stools or diarrhea [] : Denies dysuria or hematuria [] Musculoskeletal: Denies back pain or joint pain [] Integument: Denies rash or skin lesions [] Neurologic: Denies headache, focal weakness or sensory changes [] Endocrine: Denies polyuria or polydipsia [] All other systems were reviewed and found to be within normal limits, except as documented in this note. Allergies Allergies Allergies Coded Allergies Type Severity Reaction Last Updated Verified ibuprofen Allergy Intermediate 10/20/16 Yes naproxen Allergy Intermediate 10/20/16 Yes Physical Exam Physical Exam Constitutional: Well developed, well nourished, no acute distress, non-toxic appearance. [] HENT: Normocephalic, atraumatic, bilateral external ears normal, oropharynx moist, no oral exudates, nose normal. [] Eyes: PERRLA, EOMI, conjunctiva normal, no discharge. [] Neck: Normal range of motion, no tenderness, supple, no stridor. [] Cardiovascular:Heart rate regular rhythm, no murmur [] Lungs & Thorax: Bilateral breath sounds clear to auscultation [] Abdomen: Bowel sounds normal, soft, no tenderness, no masses, no pulsatile masses. [] Skin: Warm, dry, no erythema, no rash. [] Back: No tenderness, no CVA tenderness. [] Extremities: No tenderness, no cyanosis, no clubbing, ROM intact, no edema. [] Neurologic: Alert and oriented X 3, normal motor function, normal sensory function, no focal deficits noted. [] Psychologic: Affect normal, judgement normal, mood normal. [] Current Patient Data Vital Signs Vital Signs Date Time Temp Pulse Resp B/P (MAP) Pulse Ox O2 Delivery O2 Flow Rate FiO2 10/29/18 14:03 97.9 86 17 155/83 (107) 99 Room Air 97.9 Lab Values Laboratory Tests Test 10/29/18 14:06 POC Urine HCG, Qualitative Hcg negative (Negative) EKG EKG [] Radiology/Procedures Radiology/Procedures [] Course & Med Decision Making Course & Med Decision Making Pertinent Labs and Imaging studies reviewed. (See chart for details) [] Dragon Disclaimer Dragon Disclaimer This electronic medical record was generated, in whole or in part, using a voice recognition dictation system. Departure Departure Impression: Primary Impression: Herpes Additional Impression: Vaginal candidiasis Disposition: HOME, SELF-CARE Condition: STABLE Referrals: NO PCP (PCP) Patient Instructions: Genital Herpes, Yeast Infection of the Skin, [id number] Additional Instructions: The medication as directed. Follow-up with your primary care provider for recheck at your scheduled appointment or return to the emergency department if worsening. Scripts Acyclovir (ACYCLOVIR) 800 Mg Tablet 1 TAB PO 5XDAY for herpes, #50 TAB 3 Refills Prov: JESÚS ALAMO APRN 10/29/18 Fluconazole (DIFLUCAN) 150 Mg Tablet 1 TAB PO ONCE for yeast, #1 TAB 1 Refill Prov: JESÚS ALAMO APRN 10/29/18 Problem Qualifiers JESÚS ALAMO APRN Oct 29, 2018 14:26
== END 2018-10-29 14:40 | disposition home or self-care (01) ==
LOC: ER 13:38
DX: B37.3 Candidiasis of vulva and vagina (principal); B00.89 Other herpesviral infection; E11.9 Type 2 diabetes mellitus without complications; G89.29 Other chronic pain; Z90.49 Acquired absence of other specified parts of digestive tract; Z88.5 Allergy status to narcotic agent; Z88.8 Allergy status to other drugs, medicaments and biological substances
CPT/HCPCS: 81025; 99283

== ENCOUNTER 2018-12-29 11:02 | Emergency (ER) | payer MEDICAID, OTHER ==
[~2018-12-29] VITALS: Ht 180.3 cm; Wt 117.9 kg
[~2018-12-29 11:02] MED LIST changes: +FLUC150T PO
[2018-12-29 13:53] LABS: BILIRUBIN,URINE NEGATIVE (NEG); CLARITY,URINE CLEAR; COLOR,URINE YELLOW; NITRITE,URINE NEGATIVE (NEG); PROTEIN,URINE NEGATIVE (NEG-TRACE); UROBILINOGEN,URINE 0.2 mg/dL (0.2 mg/dL)
[2018-12-29 14:00] VITALS: BP 112/70
[2018-12-29 14:02] LABS: BACTERIA,URINE MODERATE /HPF (0-FEW); SQUAMOUS EPITHELIAL CELL,UR MOD /LPF
[2018-12-29 14:03] LABS: RBC,URINE 0 /HPF (0-2); YEAST,URINE PRESENT /HPF
[2018-12-29] MEDS ORDERED: FLUC150T PO (14:26)
[2018-12-29] MEDS ORDERED: NYST15CR TP (14:26)
--- NOTE | 2018-12-29 14:26 | PHYS DOC ---
Past Medical History Past Medical History: Diabetes-Type II Additional Past Medical Histor: abscess, chronic back pain, HERPES Past Surgical History: Cholecystectomy, Other Additional Past Surgical Histo: teeth extraction Alcohol Use: None Drug Use: None Adult General Chief Complaint Chief Complaint: VAGINAL PROBLEM HPI HPI Patient is a 28 year old female who presents to the ER with complaints of white vaginal discharge and vaginal itching x2 days. Pt states she often gets yeast infections because she is a type 2 diabetic. She denies any fever, vaginal odor, increased urinary frequency, hematuria, abdominal pain, nausea, vomiting, or diarrhea. She denies any concerns of a sexually transmitted infection. Pt denies any pain at this time. Review of Systems Review of Systems Constitutional: Denies fever or chills [] Respiratory: Denies cough or shortness of breath [] Cardiovascular: No additional information not addressed in HPI [] GI: Denies abdominal pain, nausea, vomiting, or diarrhea [] : See HPI Musculoskeletal: Denies back pain Integument: Denies rash or skin lesions [] Neurologic: Denies headache Endocrine: Denies polyuria or polydipsia [] Allergies Allergies Allergies Coded Allergies Type Severity Reaction Last Updated Verified ibuprofen Allergy Intermediate 10/20/16 Yes naproxen Allergy Intermediate 10/20/16 Yes Physical Exam Physical Exam Constitutional: Well developed, well nourished, no acute distress, non-toxic appearance, obese. [] HENT: Normocephalic, atraumatic, bilateral external ears normal, nose normal. [] Eyes: conjunctiva normal, no discharge. [] Neck: Normal range of motion, no stridor. [] Lungs & Thorax: Respirations even and unlabored, no retractions, no respiratory distress Pelvic Exam: Blanker Operator present Abdomen: Nontender External Genitalia: Erythremic with thick white discharge present consistent with candidal vulvovaginitis Speculum: Normal vaginal mucosa, normal cervical discharge Bimanual: No adnexal masses or tenderness, No CMT Skin: Warm, dry Extremities: No cyanosis, ROM intact Neurologic: Alert and oriented X 3, no focal deficits noted. [] Psychologic: Affect normal, judgement normal, mood normal. [] Current Patient Data Vital Signs Vital Signs Date Time Temp Pulse Resp B/P (MAP) Pulse Ox O2 Delivery O2 Flow Rate FiO2 12/29/18 14:00 84 112/70 (84) 98 Room Air 12/29/18 13:00 17 12/29/18 11:25 97.4 97.4 Lab Values Laboratory Tests Test 12/29/18 12:37 Urine Collection Type Unknown Urine Color Yellow Urine Clarity Clear Urine pH 5.0 Urine Specific [place] >=1.030 Urine Protein Negative mg/dL (NEG-TRACE) Urine Glucose (UA) >=1000 mg/dL (NEG) Urine Ketones (Stick) Negative mg/dL (NEG) Urine Blood Negative (NEG) Urine Nitrite Negative (NEG) Urine Bilirubin Negative (NEG) Urine Urobilinogen Dipstick 0.2 mg/dL (0.2 mg/dL) Urine Leukocyte Esterase Negative (NEG) Urine RBC 0 /HPF (0-2) Urine WBC 1-4 /HPF (0-4) Urine Squamous Epithelial Cells Mod /LPF Urine Bacteria Moderate /HPF (0-FEW) Urine Yeast Present /HPF Microbiology 12/29/18 Wet Prep - Final, Complete EKG EKG [] Radiology/Procedures Radiology/Procedures [] Course & Med Decision Making Course & Med Decision Making Pertinent Labs and Imaging studies reviewed. (See chart for details) [] Dragon Disclaimer Dragon Disclaimer This electronic medical record was generated, in whole or in part, using a voice recognition dictation system. Departure Departure Impression: Primary Impression: Vaginal yeast infection Disposition: 01 HOME, SELF-CARE Condition: STABLE Referrals: NO PCP (PCP) Patient Instructions: Candidal Vulvovaginitis, [id number] Additional Instructions: Fill the prescriptions and use as directed. Follow up with your primary care doctor if symptoms persist, return to the ER if symptoms worsen. Scripts Nystatin (NYSTATIN) 15 Gm Cream..g. 1 JHONNY TP TID for 5 Days, #30 GM 0 Refills apply to vaginal area topically Prov: REN RICHARDS APRN 12/29/18 Fluconazole (DIFLUCAN) 150 Mg Tablet 1 TAB PO ONCE, #1 TAB 0 Refills Prov: REN RICHARDS APRN 12/29/18 REN RICHARDS APRN Dec 29, 2018 14:26
[2018-12-31 14:15] LABS: GC PROBE Negative (Negative)
== END 2018-12-29 14:40 | disposition home or self-care (01) ==
LOC: ER 11:02
DX: B37.3 Candidiasis of vulva and vagina (principal); E11.9 Type 2 diabetes mellitus without complications; G89.29 Other chronic pain; Z90.49 Acquired absence of other specified parts of digestive tract; Z88.5 Allergy status to narcotic agent; Z88.8 Allergy status to other drugs, medicaments and biological substances
CPT/HCPCS: 81001; 87086; 87491; 87591; 99283; Q0111

== ENCOUNTER 2019-04-11 11:46 | Emergency (ER) | payer OTHER ==
[~2019-04-11] VITALS: Ht 172.7 cm; Wt 117.9 kg
[~2019-04-11 11:46] MED LIST changes: +NYST15CR TP
[2019-04-11 11:59] VITALS: BP 138/69
--- NOTE | 2019-04-11 13:09 | PHYS DOC ---
Past Medical History Past Medical History: Diabetes-Type II Additional Past Medical Histor: abscess, chronic back pain, HERPES Past Surgical History: Cholecystectomy, Other Additional Past Surgical Histo: teeth extraction Alcohol Use: None Drug Use: None Adult General Chief Complaint Chief Complaint: VAGINAL PROBLEM HPI HPI Patient is a 29 year old female who presents with dysuria, and white discharge has been ongoing since Sunday. 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 The patient rates her pain as 8 out of 10 in severity, and states is burning, stabbing, and achy. No interventions of been performed at home. Review of Systems Review of Systems Constitutional: Denies fever or chills [] Eyes: Denies change in visual acuity, redness, or eye pain [] HENT: Denies nasal congestion or sore throat [] Respiratory: Denies cough or shortness of breath [] Cardiovascular: No additional information not addressed in HPI [] GI: Denies abdominal pain, nausea, vomiting, bloody stools or diarrhea [] : Reports dysuria and hematuria, and itching. Musculoskeletal: Denies back pain or joint pain [] Integument: Denies rash or skin lesions [] Neurologic: Denies headache, focal weakness or sensory changes [] Endocrine: Denies polyuria or polydipsia [] Complete systems were reviewed and found to be within normal limits, except as documented in this note. Allergies Allergies Allergies Coded Allergies Type Severity Reaction Last Updated Verified ibuprofen Allergy Intermediate 10/20/16 Yes naproxen Allergy Intermediate 10/20/16 Yes Physical Exam Physical Exam Constitutional: Well developed, well nourished, no acute distress, non-toxic appearance. [] HENT: Normocephalic, atraumatic, bilateral external ears normal, oropharynx moist, no oral exudates, nose normal. [] Eyes: PERRLA, EOMI, conjunctiva normal, no discharge. [] Neck: Normal range of motion, no tenderness, supple, no stridor. [] Cardiovascular:Heart rate regular rhythm, no murmur [] Lungs & Thorax: Bilateral breath sounds clear to auscultation [] Abdomen: Bowel sounds normal, soft, no tenderness, no masses, no pulsatile masses. [] Skin: Warm, dry, no erythema, no rash. [] Back: No tenderness, no CVA tenderness. [] Extremities: No tenderness, no cyanosis, no clubbing, ROM intact, no edema. [] Neurologic: Alert and oriented X 3, normal motor function, normal sensory function, no focal deficits noted. [] Psychologic: Affect normal, judgement normal, mood normal. [] Pelvic Exam: External exam is shows vaginal bleeding (patient reports on period) and has multiple ulceration. No CMT, OS is closed, Some bleeding, no discharge noted. Current Patient Data Vital Signs Vital Signs Date Time Temp Pulse Resp B/P (MAP) Pulse Ox O2 Delivery O2 Flow Rate FiO2 04/11/19 11:59 97.9 86 18 138/69 (92) 98 Room Air 97.9 Lab Values Laboratory Tests Test 04/11/19 12:06 04/11/19 13:15 POC Urine HCG, Qualitative Hcg negative (Negative) Urine Collection Type Unknown Urine Color Yellow Urine Clarity Clear Urine pH 5.0 Urine Specific [place] >=1.030 Urine Protein Negative mg/dL (NEG-TRACE) Urine Glucose (UA) >=1000 mg/dL (NEG) Urine Ketones (Stick) Negative mg/dL (NEG) Urine Blood Large (NEG) Urine Nitrite Negative (NEG) Urine Bilirubin Negative (NEG) Urine Urobilinogen Dipstick 0.2 mg/dL (0.2 mg/dL) Urine Leukocyte Esterase Negative (NEG) Urine RBC >40 /HPF (0-2) Urine WBC 0 /HPF (0-4) Urine Squamous Epithelial Cells Few /LPF Urine Bacteria 0 /HPF (0-FEW) Microbiology 04/11/19 Wet Prep - Final, Complete EKG EKG [] Radiology/Procedures Radiology/Procedures [] Course & Med Decision Making Course & Med Decision Making Pertinent Labs and Imaging studies reviewed. (See chart for details) Will do pelvic exam, urine sample, and get STD testing. Appears to have herpes outbreak (known history of herpes) and possible yeast infection. Will give diflucan 150 mg in ER. Will also give Acyclovir. Dragon Disclaimer Dragon Disclaimer This electronic medical record was generated, in whole or in part, using a voice recognition dictation system. Departure Departure Impression: Primary Impression: Herpes Disposition: 01 HOME, SELF-CARE Condition: STABLE Referrals: NO PCP (PCP) KEVIN PARSON MD Patient Instructions: Candidal Vulvovaginitis, [id number], Genital Herpes Additional Instructions: Thank you for visiting [facility]. We appreciate you trusting us with your care. If any additional problems come up don't hesitate to return to visit us. Please follow up with your primary care provider so they can plan additional care if needed and know about the problem that you had. If symptoms worsen come back to the Emergency Department. Any concerning symptoms that start such as chest pain, shortness of air, weakness or numbness on one side of the body, running high fevers or any other concerning symptoms return to the ER. Please fill your medications at any pharmacy and follow the prescription instructions. You have been prescribed an antiviral today to help fight your infection. Please take all of the antibiotic as directed. If after 48 hours the infection is not improving, please return for more care. If the infection worsens, return to ER for additional care. Scripts Ondansetron (ONDANSETRON ODT) 4 Mg Tab.rapdis 1 TAB PO PRN Q6-8HRS PRN for NAUSEA, #16 TAB Prov: MAINOR JAMES APRN 04/11/19 Acyclovir (ACYCLOVIR) 800 Mg Tablet 800 MG PO BID for 5 Days, #10 TAB Prov: MAINOR JAMES APRN 04/11/19 MAINOR JAMES APRN Apr 11, 2019 13:09
[2019-04-11 13:19] LABS: BILIRUBIN,URINE NEGATIVE (NEG); CLARITY,URINE CLEAR; COLOR,URINE YELLOW; NITRITE,URINE NEGATIVE (NEG); PROTEIN,URINE NEGATIVE (NEG-TRACE); UROBILINOGEN,URINE 0.2 mg/dL (0.2 mg/dL)
[2019-04-11 13:26] LABS: BACTERIA,URINE 0 /HPF (0-FEW); RBC,URINE >40 /HPF (0-2); SQUAMOUS EPITHELIAL CELL,UR FEW /LPF; WBC,URINE 0 /HPF (0-4)
[2019-04-11] MEDS ORDERED: METR-34 PO (14:36)
[2019-04-11] MEDS ORDERED: ACYC800T PO (14:36)
[2019-04-11] MEDS ORDERED: ONDA4TAB12 PO (14:36)
[2019-04-11] MEDS ORDERED: FLUCONAZOLE 100 MG TABLET. PO STA (14:39)
[2019-04-14 18:09] LABS: GC PROBE Negative (Negative)
== END 2019-04-11 14:58 | disposition home or self-care (01) ==
LOC: ER 11:46
DX: B00.9 Herpesviral infection, unspecified (principal); R30.0 Dysuria; R31.9 Hematuria, unspecified; N89.8 Other specified noninflammatory disorders of vagina; E11.9 Type 2 diabetes mellitus without complications; G89.29 Other chronic pain; Z90.49 Acquired absence of other specified parts of digestive tract; Z88.6 Allergy status to analgesic agent; Z88.8 Allergy status to other drugs, medicaments and biological substances
CPT/HCPCS: 36415; 81001; 81025; 87491; 87591; 99285; Q0111

== ENCOUNTER 2019-09-01 06:15 | Emergency (ER) | payer OTHER ==
[~2019-09-01] VITALS: Ht 180.3 cm; Wt 106.6 kg
[~2019-09-01 06:15] MED LIST changes: +METR-34 PO; +ONDA4TAB12 PO
[2019-09-01 06:22] VITALS: BP 135/77
[2019-09-01] MEDS ORDERED: FLUC150T PO (06:56)
[2019-09-01] MEDS ORDERED: ACYC800T PO (06:56)
--- NOTE | 2019-09-01 07:00 | PHYS DOC ---
Past Medical History Past Medical History: Diabetes-Type II Additional Past Medical Histor: abscess, chronic back pain, HERPES Past Surgical History: Cholecystectomy, Other Additional Past Surgical Histo: teeth extraction Alcohol Use: None Drug Use: None Adult General Chief Complaint Chief Complaint: VAGINAL PROBLEM HPI HPI Patient is a 29 year old female with history of diabetes mellitus, genital herpes who presents with complaining of "herpes". Patient states she has had episodes of recurrent genital herpes and because of lack of primary care physician doesn't take continuing preventative medication. Patient states she has had another episode of herpes with genital blister that started 2 days ago with pain and itching in genital area like her previous episodes of herpes and a prescription for acyclovir. Patient states usually gets yeast infection with episodes of her piece because of her diabetes. Patient states her blood sugar was 123 this morning and denies , nausea and vomiting, abdominal pain, fever and chills. Review of Systems Review of Systems Constitutional: Denies fever or chills [] Eyes: Denies change in visual acuity, redness, or eye pain [] HENT: Denies nasal congestion or sore throat [] Respiratory: Denies cough or shortness of breath [] Cardiovascular: No additional information not addressed in HPI [] GI: Denies abdominal pain, nausea, vomiting, bloody stools or diarrhea [] : Denies dysuria or hematuria [] Musculoskeletal: Denies back pain or joint pain [] Integument: Denies rash or skin lesions [] Neurologic: Denies headache, focal weakness or sensory changes [] Endocrine: Denies polyuria or polydipsia [] All other systems were reviewed and found to be within normal limits, except as documented in this note. Allergies Allergies Allergies Coded Allergies Type Severity Reaction Last Updated Verified ibuprofen Allergy Intermediate 10/20/16 Yes naproxen Allergy Intermediate 10/20/16 Yes Physical Exam Physical Exam Constitutional: Well developed, well nourished, no distress, non-toxic appearance. [] HENT: Normocephalic, atraumatic. Eyes: PERRLA, EOMI, conjunctiva normal, no discharge. [] Neck: Normal range of motion, no tenderness, supple, no stridor. [] Cardiovascular:Heart rate regular rhythm, no murmur [] Lungs & Thorax: Bilateral breath sounds clear to auscultation [] Abdomen: Bowel sounds normal, soft, no tenderness, no masses, no pulsatile masses. Patient refuses vaginal exam. Skin: Warm, dry, no erythema, no rash. [] Back: No tenderness, no CVA tenderness. [] Extremities: No tenderness, no cyanosis, no clubbing, ROM intact, no edema. [] Neurologic: Alert and oriented X 3, no focal deficits noted. [] Psychologic: Affect normal, judgement normal, mood normal. [] Current Patient Data Vital Signs Vital Signs Date Time Temp Pulse Resp B/P (MAP) Pulse Ox O2 Delivery O2 Flow Rate FiO2 09/01/19 06:22 97.8 82 14 135/77 (96) 100 Room Air 97.8 EKG EKG [] Radiology/Procedures Radiology/Procedures [] Course & Med Decision Making Course & Med Decision Making Evaluation of patient in ER showed 29-year-old female patient with history of genital herpes presented with herpes outbreak for the last 2 days. Patient had stable vital signs. Patient was advised to follow-up with primary care physician for preventive medication prescription of acyclovir. Prescription for acyclovir and Diflucan was given. Dragon Disclaimer Dragon Disclaimer This electronic medical record was generated, in whole or in part, using a voice recognition dictation system. Departure Departure Impression: Primary Impression: Herpetic vesicle in vagina Disposition: HOME, SELF-CARE (At 0653) Condition: STABLE Referrals: NO PCP (PCP) Patient Instructions: Genital Herpes Additional Instructions: Drink plenty of liquids Follow-up with your primary care physician in 3-5 days Return to ER if not getting better Scripts Fluconazole (DIFLUCAN) 150 Mg Tablet 1 TAB PO ONCE, #1 TAB Prov: MICHAEL SILVEIRA MD 09/01/19 Acyclovir (ACYCLOVIR) 800 Mg Tablet 800 MG PO BID, #10 TAB Prov: MICHAEL SILVEIRA MD 09/01/19 MICHAEL SILVEIRA MD Sep 01, 2019 07:00
== END 2019-09-01 07:05 | disposition home or self-care (01) ==
LOC: ER 06:15
DX: A60.04 Herpesviral vulvovaginitis (principal); G89.29 Other chronic pain; E11.9 Type 2 diabetes mellitus without complications; Z90.49 Acquired absence of other specified parts of digestive tract; Z88.5 Allergy status to narcotic agent; Z88.8 Allergy status to other drugs, medicaments and biological substances
CPT/HCPCS: 99283